=== PATIENT | male | born 1965 | race African-American/Black ===

== ENCOUNTER 2018-09-14 08:06 | Inpatient (IN) | payer OTHER ==
[2018-09-14] MEDS ORDERED: Acetaminophen 500 MG TAB ONE (08:29)
[2018-09-14] MEDS ORDERED: Piperacillin/Tazobactam 4.5 GM VIAL ONE (08:29)
[2018-09-14 08:43] LABS: #Basophils 0.1 thou/uL (0.0-0.2); #Lymphocytes 1.7 thou/uL (1.20-3.40); #Monocytes 1.2 thou/uL (0.11-0.59); #Neutrophils 7.4 thou/uL (1.40-6.50); %Basophils 0.7 % (0.0-1.0); %Eosinophils 0.3 % (0.0-10.0); %Lymphocytes 16.6 % (21.0-51.0); %Monocytes 11.9 % (0.0-10.0); %Neutrophils 70.5 % (42.0-75.0); Hemoglobin 11.5 g/dL (14.0-18.0); Mean Corpuscular HGB CONC 32.2 g/dL (32.0-36.0); Mean Corpuscular Hemoglobin 29.9 pg (27.0-31.0); Mean Corpuscular Volume 92.7 fL (78.0-98.0); Platelet Count 332 thou/uL (130-400); RBC Distribution Width 13.3 % (11.5-14.5); Red Blood Cell (RBC) Count 3.84 mill/uL (4.70-6.10); White Blood Cell (WBC) Count 10.4 thou/uL (4.8-10.8)
[2018-09-14 09:02] LABS: Bilirubin Small (Negative); Blood, Urine Negative (Negative); Clarity CLOUDY (Clear); Glucose, Urine (Dipstick) Negative (Negative); Leukocyte Small (Negative); Nitrite Negative (Negative); Protein, Urine (Dipstick) Negative (Neg-Trace); Specific Gravity, Urine 1.019 (1.002-1.036)
[2018-09-14 09:05] LABS: Bacteria/HPF 4+ HPF (None Seen); Hyaline Casts/LPF 0-3 HYALINE CAST LPF (0-3 Hyaline); RBC/HPF 0-3 HPF (0-3); Squamous Epithelial 0-3 HPF (0-3)
[2018-09-14 09:06] LABS: ALT (SGPT) 12 U/L (8-55); AST (SGOT) 15 U/L (5-34); Albumin 3.9 g/dL (3.5-5.0); Alkaline Phosphatase 93 U/L (40-150); Anion Gap 15 mmol/L (10-20); BUN (Urea Nitrogen) 19 mg/dL (8.4-25.7); Bilirubin, Total 0.7 mg/dL (0.2-1.2); Calc. Creatinine Clearance 0 mL/min (70-130); Calcium 9.4 mg/dL (7.8-10.44); Carbon Dioxide 27 mmol/L (22-29); Chloride 102 mmol/L (98-107); Estimated GFR-MDRD Greater than 90; Globulin 3.8 g/dL (2.4-3.5); Glucose 141 mg/dL (70-105); Potassium 4.4 mmol/L (3.5-5.1); Protein, Total 7.7 g/dL (6.0-8.3); Sodium 140 mmol/L (136-145)
[2018-09-14] MEDS ORDERED: Morphine 2 MG/ML SYRINGE ONE (09:37)
--- NOTE | 2018-09-14 09:50 | RAD ---
AP CHEST: History: Undifferentiated sepsis. Date: 09-14-18 Comparison: 01-19-16 FINDINGS: AP chest demonstrates EKG leads seen over the chest. The lungs are well aerated. No evidence of activ e intrathoracic disease seen. No evidence of effusions, pneumonia or pneumothorax seen. IMPRESSION: Unremarkable AP chest. POS: [facility]
--- NOTE | 2018-09-14 09:51 | RAD ---
LEFT HIP SERIES TWO TO THREE VIEWS: INDICATIONS: Fall with injury, pain. FINDINGS: There is a comminuted proximal left femoral fracture, which is centered at the intertrochanteric aspe ct of the proximal left femur. There is shaft width medial displacement of the major distal frac ture fragment. The femoral head remains seated within the acetabulum. IMPRESSION: Comminuted proximal left femoral fracture. POS: [facility]
--- NOTE | 2018-09-14 09:52 | RAD ---
TWO VIEWS RIGHT HIP: INDICATION: Fall with pain. FINDINGS: There is a mildly displaced proximal diaphyseal fracture of the right femur. Osseous structures are demineralized. There is scattered degenerative change. Radiopaque density overlies the right hemipe lvis. IMPRESSION: Mildly displaced proximal diaphyseal fracture of the right femur. POS: [facility]
--- NOTE | 2018-09-14 09:52 | RAD ---
FRONTAL VIEW PELVIS: Indication: Fall, pain, injury. FINDINGS: Partially imaged proximal diaphyseal fracture of the right femur is more adequately depicted on the r ight hip radiograph series. There is a comminuted proximal left femoral fracture which is centered at the intertrochanteric region underlying the greater trochanter as well as extending into the proxima l diaphysis. There is radiopaque density overlying the right hemipelvis. Incidental note of constipat ion. IMPRESSION: 1. Comminuted proximal left femur fracture. 2. Partially imaged proximal right femoral diaphyseal fracture. 3. Recommend orthopedic consultation. POS: [facility]
[2018-09-14] MEDS ORDERED: Vancomycin HCl 1.75 GM in Sodium Chloride 0.9% 500 ML IVPB SCH (10:00)
--- NOTE | 2018-09-14 13:38 | HP ---
PRIMARY CARE PROVIDER: Dr. Garcia. CHIEF COMPLAINT: Fall and leg pain. HISTORY OF PRESENT ILLNESS: This is a 52-year-old male, who presented to [facility] Emergency Department in transfer from [facility], where the patient is current resident since 2014. The patient apparently was being transferred with a Clau lift. On 09/13/2018, when he was suddenly dropped to the floor. The patient landed on his hips and buttocks and was monitored at the intermediate for approximately 24 hours. The patient complained of pain in his legs and hips, at which point, intermediate staff alerted EMS personnel for evaluation. EMS arrived and noted the patient's vital signs with tachycardia with heart rates in the 140s and blood pressure 84/54. The patient was given IV fluids and transported to the Emergency Department. The history is obtained after review of electronic medical record as well as discussions with the patient. The patient complained of pain to bilateral thighs and hip region, undergoing radiographic evaluation showing a bilateral femur fractures. The patient was also noted to meet sepsis criteria with tachycardia, hypotension, and a fever of 102.5 degrees Fahrenheit. The patient was given appropriate IV fluid resuscitation and initiated on empiric antibiotics with vancomycin and Zosyn. Initial urinalysis suspicious for infectious source in the context of neurogenic bladder. The patient states he has had multiple sclerosis since 2010 and has been nonambulatory for several years. PAST MEDICAL HISTORY: 1. Multiple sclerosis with progressive physical decline and nonambulatory status. 2. Paranoid schizophrenia. 3. Neurogenic bladder. 4. Chronic anticoagulation with Eliquis. 5. Question of DVT. 6. Peripheral neuropathy. PAST SURGICAL HISTORY: Reviewed and negative. CURRENT MEDICATIONS: 1. Neurontin 300 mg p.o. b.i.d. 2. Baclofen 10 mg p.o. t.i.d. 3. Multivitamin 1 tablet p.o. daily. 4. Oxybutynin 5 mg p.o. b.i.d. 5. Risperdal 7.5 mg p.o. at bedtime. 6. Eliquis 5 mg 1 tablet p.o. daily. 7. Mirtazapine 15 mg p.o. daily. 8. Depakote 125 mg p.o. b.i.d. 9. Vitamin C 250 mg 1 tablet p.o. daily. 10. Zantac 150 mg p.o. daily. 11. Lactulose 10 g p.o. b.i.d. 12. Linzess 290 mcg daily. 13. Tramadol 50 mg 1 to 2 tablets p.o. t.i.d. p.r.n. 14. Xopenex nebulized solution 1.25 mg/3 mL daily p.r.n. 15. Copaxone 20 mg subcutaneously daily. ALLERGIES: NO KNOWN DRUG ALLERGIES. FAMILY HISTORY: Positive for hypertension and diabetes mellitus. SOCIAL HISTORY: The patient resides at [facility]. Former tobacco use for approximately 15 years, quitting in 2010. No current alcohol or illicit drug use. Nonambulatory status. Originally from [place], [place]. REVIEW OF SYSTEMS: CONSTITUTIONAL: Negative for weight loss or gain, ability to conduct usual activities. SKIN: Negative for rash, itching. EYES: Negative for double vision, pain. ENT/MOUTH: Negative for nose bleeding, neck stiffness, pain, tenderness. CARDIOVASCULAR: Negative for palpitations, dyspnea on exertion, orthopnea. RESPIRATORY: Negative for shortness of breath, wheezing, cough, hemoptysis, fever or night sweats. GASTROINTESTINAL: Negative for poor appetite, abdominal pain, heartburn, nausea, vomiting, constipation, or diarrhea. GENITOURINARY: Negative for urgency, frequency, dysuria, nocturia. MUSCULOSKELETAL: Negative for pain, swelling. NEUROLOGIC/PSYCHIATRIC: Negative for anxiety, depression. ALLERGY/IMMUNOLOGIC: Negative for skin rash, bleeding tendency. Otherwise, negative except as stated per HPI. PHYSICAL EXAMINATION: VITAL SIGNS: On admission; blood pressure 98/68, pulse 132, respiratory rate 15, temperature 102.5 degrees Fahrenheit, and O2 saturation 96% on room air. GENERAL APPEARANCE: This is a 52-year-old male, alert and responsive. Mild dysarthria, in no acute distress. HEENT: Pupils are equal, round, and reactive to light and accommodation. Extraocular muscles are intact. No scleral icterus. No conjunctival injection. Nares patent. OP is clear. NECK: Supple. No adenopathy. No thyromegaly. CHEST: Lungs are clear to auscultation bilaterally. CARDIOVASCULAR: S1 and S2 without noted murmur, rub, or gallop. Tachycardia noted. ABDOMEN: Obese, soft, nontender, and nondistended. Bowel sounds are positive in all 4 quadrants. There is no hepatosplenomegaly. No palpable mass. EXTREMITIES: Warm and dry with fair turgor. Deformity noted at the proximal thighs and anterior femur region with mild tenderness to palpation and firmness consistent with bilateral thigh hematoma. Deformities noted of bilateral feet. Pulses palpable distally at the dorsalis pedis and posterior tibial arteries. NEUROLOGIC: Cranial nerves 2 through 12 are grossly intact. Mild dysarthria noted. Now observed ambulatory. No other gross focal deficits appreciated. PERTINENT LABS AND X-RAY FINDINGS: Sodium 140, potassium 4.4, chloride 102, CO2 of 27, BUN 19, creatinine 0.76, glucose 141, lactic acid level 1.6, and calcium 9.4. LFTs within normal limits. CBC showed a white blood cell count of 10.4, hemoglobin 11.5, hematocrit 36, and platelet count 332, with 71% neutrophils. Urinalysis shows specific gravity 1.019, positive ketone, positive leukocyte esterase with 11 to 20 wbc's per high-power field, and 4+ bacteria. Portable chest x-ray dated 09/14/2018, showed no acute cardiopulmonary process. Bilateral hip and femur x-rays showed a comminuted proximal left femoral fracture with a mildly displaced proximal diaphyseal fracture of the right femur. Telemetry monitoring showed sinus tachycardia with heart rates in the 120s. ASSESSMENT AND PLAN: 1. Sepsis. The patient with sepsis criteria including tachycardia, hypotension, and fever likely urinary tract source. We will continue vancomycin 1.5 g IV q.12 hours with addition of Zosyn 4.5 g IV q.6 hours pending urine and blood culture results. Continue IV fluids with normal saline 125 mL/h. Check lactic acid level. 2. Bilateral femur fractures. Status post fall with bilateral femur fractures. We will consult Orthopedic Surgery Service for evaluation and consideration for open reduction and internal fixation. Pain control with morphine sulfate 4 mg IV q.4 hours p.r.n. 3. Multiple sclerosis, chronic. We will confirm outpatient medication regimen and monitor clinically. 4. Normocytic anemia. Chronic appearing when reviewing electronic medical record. We will continue serial H and H monitoring given the patient's anticoagulation with Eliquis and current bilateral femur fractures. Repeat CBC in the a.m. 5. Chronic anticoagulation. We will hold Eliquis pending surgical evaluation. Serial H and H monitoring as stated previously. 6. Neurogenic bladder. Check urine culture. Continue IV antibiotics as stated previously. 7. Prophylaxis. Sequential compression devices while in bed. Pepcid 20 mg p.o. b.i.d. General fall risk precautions. 8. Code Status is full. Surrogate medical decision maker is Omar Hernandez. Job ID: [id number]
[2018-09-14] MEDS ORDERED: Morphine 4 MG/ML VIAL SLOW IVP PRN (14:09)
[2018-09-14] MEDS ORDERED: Ondansetron ODT 4 MG TAB PO PRN (14:09)
[2018-09-14 14:37] LABS: Hemoglobin 9.9 g/dL (14.0-18.0); Platelet Count 264 thou/uL (130-400)
--- NOTE | 2018-09-14 15:33 | CON ---
DATE OF CONSULTATION: 09/14/2018 REQUESTING PHYSICIAN: [facility]. CONSULTING PHYSICIAN: Isaias Reddy MD. REASON FOR CONSULTATION: Bilateral femur fractures. HISTORY OF PRESENT ILLNESS: This is a 52-year-old male, who presented to [place] [facility] Department by way of transfer from [facility], where the patient has lived since 2014. The patient was apparently being transferred with a Clau lift on 09/13/2018 when he was suddenly dropped to the floor. The patient landed on his hips and buttocks and was monitored at the shelter for approximately 24 hours. The patient has complained of pain in his legs and hips, at which point the nursing staff alerted EMS personnel for evaluation. EMS arrived and noted the patient's vital signs with tachycardia and heart rates in the 140s and blood pressure 84/54. The patient was given IV fluids and transferred to the emergency department. Majority of the history is obtained through medical record, documentation as well as primary H and P from the [facility] due to the patient's longstanding history of MS and limited history provided. The patient has now been admitted for urosepsis with bilateral femur fractures. We have been consulted for this reason. The patient states he has had multiple sclerosis since 2010. Has been nonambulatory for a number of years. Currently, at bedside, he reports some pain in his legs, currently 5/10 after receiving pain medication. He states that the most painful event was being transferred from the EMS stretcher to the ER [facility]. PAST MEDICAL HISTORY: Significant for multiple sclerosis with progressive physical decline and nonambulatory status, paranoid schizophrenia, neurogenic bladder, chronic anticoagulation with Eliquis, possible history of DVT, peripheral neuropathy. PAST SURGICAL HISTORY: Negative. ALLERGIES: NO KNOWN DRUG ALLERGIES. FAMILY HISTORY: Reviewed and noncontributory. SOCIAL HISTORY: The patient currently resides at [facility]. Former tobacco smoker for approximately 15 years, quit in 2010. No current alcohol or tobacco or drug use. Nonambulatory status. Originally from [place], [place]. REVIEW OF SYSTEMS: Reviewed and noncontributory, otherwise as stated above. PHYSICAL EXAMINATION: VITAL SIGNS: Show a blood pressure of 114/76, pulse of 122, respiratory rate of 16, temperature 99.9 oral, pain level 5/10, and O2 saturation 99% on room air. GENERAL: The patient is awake and alert. He is lying supine on a gurney in the ER. He is pleasant and cooperative with exam findings today. He answers most questions appropriately. He does provide his cellphone with a number of his cousin and power of licensed [employer] real estate appraiser. HEENT: Head is normocephalic, atraumatic. NECK: Supple. Trachea midline. RESPIRATORY: Breathing is nonlabored. HEART: Tachycardic. EXTREMITIES: The lower extremities are evaluated. Both feet are noted to be in the equinus position. He states he cannot move his feet. He reports sensation is intact distally. I am also able to palpate up his legs to his thigh and femur region. He expresses tenderness to palpation on the right thigh. He states that he can feel me touch on the left thigh, but this is not painful. He is able to move both upper extremities without any difficulty and both upper extremities are noted to have no injuries. IMAGING STUDIES: Imaging reviewed by myself shows evidence of a proximal third displaced femur fracture on the left. There is also a proximal third femur fracture on the right, which is displaced as well. The right fracture appears to be slightly more distal than the left. The left is just distal to the subtrochanteric region. ASSESSMENT: Bilateral femur fractures in a patient with multiple sclerosis, who is nonambulatory. PLAN: At this time, I have had a long discussion with the patient regarding treatment for his bilateral femur fractures. This could be treated operatively or nonoperatively given that the patient is nonambulatory. The patient states he does get around. He does not use a wheelchair. The decision is mainly going to be made based upon pain control and how much the patient moves around if he uses some sort of scooter or assistive device. We would like to make sure that his fractures are stabilized for comfort reasons. I had a short discussion with the patient's power of licensed [employer] real estate appraiser on the phone. He states he is on his way to the hospital and we will await his arrival to make any further decisions. For now, the patient has been on Eliquis and has eaten today. He will be n.p.o. after midnight in the event that we decided to do surgery tomorrow based upon family and power of licensed [employer] real estate appraiser's decision. The patient is currently admitted to the [facility]. Job ID: [id number]
[2018-09-14 18:26] LABS: Lactic Acid 2.5 mmol/L (0.5-2.2)
[2018-09-14] MEDS: Piperacillin/Tazobactam 4.5 GM in Sodium Chloride 0.9% 100 ML IVPB SCH ×2 (18:39→23:34)
[2018-09-14] MEDS: Acetaminophen 500 MG TAB PO PRN (18:41)
[2018-09-14] MEDS: Sodium Chloride 0.9% 1,000 ML IV SCH (18:41)
[2018-09-14] MEDS: Vancomycin HCl 1.5 GM in Sodium Chloride 0.9% 250 ML 300 ML IVPB SCH (20:51)
[2018-09-14] MEDS: Famotidine 20 MG TAB PO SCH (20:51)
[2018-09-15] MEDS: Sodium Chloride 0.9% 1,000 ML IV SCH ×4 (00:19→21:15)
[2018-09-15] MEDS: Piperacillin/Tazobactam 4.5 GM in Sodium Chloride 0.9% 100 ML IVPB SCH ×3 (05:10→17:59)
[2018-09-15 07:48] LABS: Anion Gap 10 mmol/L (10-20); BUN (Urea Nitrogen) 11 mg/dL (8.4-25.7); Calc. Creatinine Clearance 0 mL/min (70-130); Calcium 7.8 mg/dL (7.8-10.44); Carbon Dioxide 24 mmol/L (22-29); Chloride 109 mmol/L (98-107); Estimated GFR-MDRD Greater than 90; Glucose 109 mg/dL (70-105); Potassium 3.4 mmol/L (3.5-5.1); Sodium 140 mmol/L (136-145)
[2018-09-15] MEDS ORDERED: CEFAZOLIN 2 GM in Premix Bag 1 BAG IVPB SCH (08:00)
[2018-09-15] MEDS ORDERED: ISOVUE-370 76%-LOCM 1 ML ONE (08:20)
[2018-09-15 08:44] LABS: Eosinophils 2 % (0-10); Hemoglobin 7.5 g/dL (14.0-18.0); Lymphocytes 20 % (21-51); MDiff Complete? YES; Mean Corpuscular HGB CONC 31.5 g/dL (32.0-36.0); Mean Corpuscular Hemoglobin 29.9 pg (27.0-31.0); Mean Platelet Volume 6.7 fL (7.4-10.4); Monocytes 10 % (0-10); Neutrophil 67 % (42-75); Platelet Count 198 thou/uL (130-400); RBC Distribution Width 13.4 % (11.5-14.5); RBC Morphology Normal; Red Blood Cell (RBC) Count 2.49 mill/uL (4.70-6.10); White Blood Cell (WBC) Count 8.9 thou/uL (4.8-10.8)
[2018-09-15] MEDS: Vancomycin HCl 1.5 GM in Sodium Chloride 0.9% 250 ML 300 ML IVPB SCH ×2 (08:50→21:15)
[2018-09-15] MEDS: Acetaminophen 500 MG TAB PO PRN ×2 (08:51→17:59)
[2018-09-15] MEDS: Famotidine 20 MG TAB PO SCH ×2 (08:51→21:15)
[2018-09-15] MEDS ORDERED: Morphine 2 MG/ML SYRINGE SLOW IVP PRN (08:59)
[2018-09-15] MEDS ORDERED: Morphine 4 MG/ML VIAL SLOW IVP PRN (09:28)
[2018-09-15] MEDS ORDERED: Ketorolac Tromethamine 30 MG/ML VIAL IVP PRN (12:32)
[2018-09-15 13:12] VITALS: BMI 23.3
--- NOTE | 2018-09-15 16:58 | PDOC.PN ---
- Subjective Encounter Start Date: 09/15/18 Encounter Start Time: 08:20 Pt seen for followup re: sepsis. Denies chest pain. - Objective Resuscitation Status - Order Detail: 09/14/18 11:29 Resuscitation Status Routine Resuscitation Status: FULL: Full Resuscitation MAR Reviewed: Yes Vital Signs & Weight: Vital Signs (12 hours) Temp Pulse Resp BP Pulse Ox 09/15/18 15:44 100.0 F H 125 H 20 88/57 L 97 09/15/18 13:18 100.3 F H 126 H 18 104/69 96 09/15/18 12:00 100.7 F H 132 H 18 95/61 96 09/15/18 08:07 100.8 F H 122 H 16 96/69 96 Weight Weight 158 lb I&O: 09/14/18 09/15/18 09/16/18 06:59 06:59 06:59 Intake Total 2510 Balance 2510 Result Diagrams: 09/15/18 07:15 09/15/18 07:15 Phys Exam - Physical Examination Constitutional: NAD HEENT: moist MMs, sclera anicteric, oral pharynx no lesions, 2+ tonsils Neck: no nodes, no JVD, supple, full ROM Respiratory: clear to auscultation bilateral S1, s2, tachy, reg Gastrointestinal: soft, non-tender, no distention, positive bowel sounds paraplegia Psychiatric: normal affect, A&O x 3 Dx/Plan (1) Sepsis Code(s): A41.9 - SEPSIS, UNSPECIFIED ORGANISM Status: Acute Comment: source of infection unclear, follow blood cultures. Check Ct chest/abdo/pelvis to r/o occult infection. (2) Hypotension Status: Acute Comment: secondary to sepsis vs. other etiologies (3) Symptomatic anemia Code(s): D64.9 - ANEMIA, UNSPECIFIED Status: Acute Comment: ? secondary to acute blood loss vs other etiologies (? sepsis). Repeat HH, check reticulocyte count. (4) Bilateral femoral fractures Code(s): S72.91XA - UNSP FRACTURE OF RIGHT FEMUR, INIT FOR CLOS FX; S72.92XA - UNSP FRACTURE OF LEFT FEMUR, INIT ENCNTR FOR CLOSED FRACTURE Status: Acute Comment: ortho consulted (5) GERD (gastroesophageal reflux disease) Code(s): K21.9 - GASTRO-ESOPHAGEAL REFLUX DISEASE WITHOUT ESOPHAGITIS Status: Chronic Qualifiers: Esophagitis presence: esophagitis presence not specified Qualified Code(s) : K21.9 - Gastro-esophageal reflux disease without esophagitis (6) Multiple sclerosis Code(s): G35 - MULTIPLE SCLEROSIS Status: Chronic - Plan continue antibiotics * . Review of Systems - Review of Systems Constitutional: negative: fever, chills, sweats, weakness, malaise Respiratory: negative: Cough, Shortness of Breath, SOB with Excertion, Pleuritic Pain, Wheezing Cardiovascular: negative: chest pain, palpitations, orthopnea, paroxysmal nocturnal dyspnea, edema, light headedness Gastrointestinal: negative: Nausea, Vomiting, Abdominal Pain, Diarrhea, Constipation, Melena, Hematochezia Genitourinary: negative: Dysuria, Frequency, Incontinence, Hematuria, Retention Skin: negative: Rash, Lesions, Ray, Bruising - Medications/Allergies Allergies/Adverse Reactions: Allergies Allergy/AdvReac Type Severity Reaction Status Date / Time No Known Allergies Allergy Verified 11/20/15 00:22 Medications: Current Medications Acetaminophen (Tylenol) 1,000 mg PO Q6H PRN PRN Reason: Mild Pain (1-3) Last Admin: 09/15/18 08:51 Dose: 1,000 mg Famotidine (Pepcid) 20 mg PO BID [facility] Last Admin: 09/15/18 08:51 Dose: 20 mg Sodium Chloride (Normal Saline 0.9%) 1,000 mls @ 125 mls/hr IV .Q8H [facility] Last Admin: 09/15/18 13:15 Dose: 1,000 mls Piperacillin Sod/Tazobactam (Sod 4.5 gm/ Sodium Chloride) 100 mls @ 200 mls/hr IVPB Q6HR [facility] Last Admin: 09/15/18 12:00 Dose: 100 mls Vancomycin HCl 1.5 gm/ Sodium (Chloride) 300 mls @ 200 mls/hr IVPB Q12HR [facility] Last Admin: 09/15/18 08:50 Dose: 300 mls Cefazolin Sodium/Dextrose 2 gm (/ Device) 50 mls @ 100 mls/hr IVPB ONCALL-OR [facility] Ketorolac Tromethamine (Toradol) 15 mg IVP Q8H PRN PRN Reason: Pain Stop: 09/20/18 12:33 Last Admin: 09/15/18 13:09 Dose: 15 mg Morphine Sulfate (Morphine) 2 mg SLOW IVP Q4H PRN PRN Reason: Moderate Pain (4-6) Morphine Sulfate (Morphine) 4 mg SLOW IVP Q4H PRN PRN Reason: Severe Pain (7-10) Ondansetron HCl (Zofran Odt) 4 mg PO Q6H PRN PRN Reason: Nausea/Vomiting Ondansetron HCl (Zofran) 4 mg IVP Q6H PRN PRN Reason: Nausea/Vomiting Sodium Chloride (Flush - Normal Saline) 10 ml IVF Q12HR [facility] Last Admin: 09/15/18 12:07 Dose: 10 ml Sodium Chloride (Flush - Normal Saline) 10 ml IVF PRN PRN PRN Reason: Saline Flush Tramadol HCl (Ultram) 100 mg PO Q4H PRN PRN Reason: Moderate Pain (4-6)
[2018-09-15] MEDS ORDERED: Potassium Chloride 20 MEQ TAB PO SCH (17:30)
[2018-09-15 17:43] LABS: Reticulocyte Count 3.3 % (0.5-1.5)
--- NOTE | 2018-09-15 19:47 | CT ---
CT CHEST WITH CONTRAST CT ABDOMEN WITH CONTRAST CT PELVIS WITH CONTRAST 09/15/18 HISTORY: Abscess. Abdominal pain. COMPARISON: None. FINDINGS: There is some scarring and atelectatic changes in both lung bases. No pneumothorax. No effusions. Thyroid is unremarkable. No mediastinal adenopathy. There is marked distention of the stomach. There is large volume stool throughout the colon. There is abnormal thickening of the rectal wall with large volume stool within the rectum. Sigmoid colon is dilated. The appendix is visualized and appears normal. No retroperitoneal adenopathy. The spleen and liver a re unremarkable. No hydronephrosis. No retroperitoneal adenopathy. There is a comminuted left intertrochanteric femoral fracture with extension to the left femoral neck . Proximal right femoral fracture is not appreciated. Large left hip joint effusion. Marked distention of the urinary bladder. The aortic contour is nonaneurysmal. IMPRESSION: 1. Marked thickening of the distal sigmoid colon and the rectum likely sequela of stercoral coli tis. Disimpact is recommended as there is marked gaseous distention of the sigmoid colon as well as l arge volume stool within the descending colon. 2. Intertrochanteric/femoral neck fracture on the left. 3. Abnormal subcutaneous fat and skin thickening over both thighs may reflect a contusion. POS: [facility]
[2018-09-16] MEDS: Piperacillin/Tazobactam 4.5 GM in Sodium Chloride 0.9% 100 ML IVPB SCH ×4 (00:03→18:20)
[2018-09-16] MEDS: traMADol HCl 50 MG TAB PO PRN ×2 (03:06→12:23)
[2018-09-16] MEDS: Sodium Chloride 0.9% 1,000 ML IV SCH ×2 (06:47→19:45)
[2018-09-16 07:41] LABS: #Eosinphils 0.2 thou/uL (0.0-0.7); #Lymphocytes 1.8 thou/uL (1.20-3.40); #Monocytes 1.2 thou/uL (0.11-0.59); #Neutrophils 7.1 thou/uL (1.40-6.50); %Basophils 0.4 % (0.0-1.0); %Eosinophils 2.2 % (0.0-10.0); %Lymphocytes 16.9 % (21.0-51.0); %Monocytes 11.2 % (0.0-10.0); %Neutrophils 69.3 % (42.0-75.0); Hemoglobin 7.1 g/dL (14.0-18.0); Mean Corpuscular Hemoglobin 30.3 pg (27.0-31.0); Mean Corpuscular Volume 91.7 fL (78.0-98.0); Platelet Count 163 thou/uL (130-400); RBC Distribution Width 13.2 % (11.5-14.5); Red Blood Cell (RBC) Count 2.35 mill/uL (4.70-6.10); White Blood Cell (WBC) Count 10.3 thou/uL (4.8-10.8)
[2018-09-16] MEDS ORDERED: Polyethylene Glycol 3350 17 GM Packet PO PRN (09:00)
[2018-09-16] MEDS ORDERED: Docusate 100 MG CAP PO PRN (09:00)
[2018-09-16] MEDS: Famotidine 20 MG TAB PO SCH ×2 (09:09→21:06)
[2018-09-16] MEDS: Vancomycin HCl 1.5 GM in Sodium Chloride 0.9% 250 ML 300 ML IVPB SCH ×2 (09:09→21:06)
[2018-09-16] MEDS ORDERED: Potassium Chloride 20 MEQ TAB PO SCH (13:45)
--- NOTE | 2018-09-16 14:20 | PDOC.PN ---
- Subjective Encounter Start Date: 09/16/18 Encounter Start Time: 14:19 Subjective: Still having bilateral hip pain though better. -: Fever has subsided. For ORIF of bilateral femoral fractures tomorrow. - Objective Resuscitation Status - Order Detail: 09/14/18 11:29 Resuscitation Status Routine Resuscitation Status: FULL: Full Resuscitation Vital Signs & Weight: Vital Signs (12 hours) Temp Pulse Resp BP Pulse Ox 09/16/18 11:10 99.7 F H 97 18 113/77 96 09/16/18 08:00 98.6 F 94 20 113/77 97 09/16/18 04:25 99.0 F 109 H 18 105/70 98 Weight Admit Weight 158 lb Weight 158 lb I&O: 09/15/18 09/16/18 09/17/18 06:59 06:59 06:59 Intake Total 2510 5440 320 Balance 2510 5440 320 Result Diagrams: 09/16/18 07:24 09/15/18 07:15 Phys Exam - Physical Examination chronically ill looking. fatigued HEENT: PERRLA, moist MMs Neck: supple Respiratory: no rales, no rhonchi fair air entry bilaterally Cardiovascular: RRR, no significant murmur Gastrointestinal: non-tender, no distention, positive bowel sounds seem enlarged, mild bilateral leg edema cranial nerves are grossly normal. Power 4/5 upper limbs and 2/5 lower limb Psychiatric: A&O x 3 Dx/Plan (1) Sepsis Code(s): A41.9 - SEPSIS, UNSPECIFIED ORGANISM Status: Acute Comment: source of infection unclear, follow blood cultures. Check Ct chest/abdo/pelvis to r/o occult infection. (2) Bilateral femoral fractures Code(s): S72.91XA - UNSP FRACTURE OF RIGHT FEMUR, INIT FOR CLOS FX; S72.92XA - UNSP FRACTURE OF LEFT FEMUR, INIT ENCNTR FOR CLOSED FRACTURE Status: Acute Comment: ortho consulted (3) Bacteremia Code(s): R78.81 - BACTEREMIA Status: Acute (4) Hypotension Status: Acute Comment: secondary to sepsis vs. other etiologies (5) Constipation Code(s): K59.00 - CONSTIPATION, UNSPECIFIED Status: Acute (6) Hypokalemia Code(s): E87.6 - HYPOKALEMIA Status: Acute (7) Acute blood loss anemia Code(s): D62 - ACUTE POSTHEMORRHAGIC ANEMIA Status: Acute (8) Symptomatic anemia Code(s): D64.9 - ANEMIA, UNSPECIFIED Status: Acute Comment: ? secondary to acute blood loss vs other etiologies (? sepsis). Repeat HH, check reticulocyte count. (9) UTI (urinary tract infection) Status: Acute (10) Multiple sclerosis Code(s): G35 - MULTIPLE SCLEROSIS Status: Chronic (11) Neurogenic bladder Code(s): N31.9 - NEUROMUSCULAR DYSFUNCTION OF BLADDER, UNSPECIFIED Status: Chronic (12) Paranoid schizophrenia Code(s): F20.0 - PARANOID SCHIZOPHRENIA Status: Chronic - Plan Continue broad spectrum antibiotics while awaiting microbe ID and susceptib -: Increase stool softener/laxatives. -: Replete serum potassium and get magnesium level. -: Follow H/H and transfuse as needed -: ORIF planned by surgery * .
[2018-09-16] MEDS: Lactated Ringer's 1,000 ML IV SCH (17:08)
[2018-09-16] MEDS: Acetaminophen 500 MG TAB PO PRN (17:08)
[2018-09-16] MEDS: Senokot S 8.6-50 MG TAB PO SCH (21:05)
[2018-09-16] MEDS: Polyethylene Glycol 3350 17 GM Packet PO SCH (21:16)
[2018-09-17] MEDS: Piperacillin/Tazobactam 4.5 GM in Sodium Chloride 0.9% 100 ML IVPB SCH ×4 (00:19→17:26)
[2018-09-17] MEDS: traMADol HCl 50 MG TAB PO PRN (04:15)
[2018-09-17] MEDS: Lactated Ringer's 1,000 ML IV SCH ×2 (04:20→17:27)
[2018-09-17 05:28] LABS: #Basophils 0.1 thou/uL (0.0-0.2); #Eosinphils 0.4 thou/uL (0.0-0.7); #Monocytes 1.4 thou/uL (0.11-0.59); %Basophils 0.5 % (0.0-1.0); %Eosinophils 3.2 % (0.0-10.0); %Lymphocytes 15.4 % (21.0-51.0); %Monocytes 10.7 % (0.0-10.0); %Neutrophils 70.3 % (42.0-75.0); Hemoglobin 7.4 g/dL (14.0-18.0); Mean Corpuscular HGB CONC 32.5 g/dL (32.0-36.0); Mean Corpuscular Hemoglobin 30.4 pg (27.0-31.0); Mean Corpuscular Volume 93.4 fL (78.0-98.0); Mean Platelet Volume 7.3 fL (7.4-10.4); Platelet Count 197 thou/uL (130-400); RBC Distribution Width 13.4 % (11.5-14.5); Red Blood Cell (RBC) Count 2.45 mill/uL (4.70-6.10); White Blood Cell (WBC) Count 12.8 thou/uL (4.8-10.8)
[2018-09-17 05:53] LABS: ALT (SGPT) 11 U/L (8-55); AST (SGOT) 17 U/L (5-34); Albumin 2.8 g/dL (3.5-5.0); Alkaline Phosphatase 57 U/L (40-150); Anion Gap 11 mmol/L (10-20); BUN (Urea Nitrogen) 6 mg/dL (8.4-25.7); Bilirubin, Total 1.4 mg/dL (0.2-1.2); Calc. Creatinine Clearance 172 mL/min (70-130); Calcium 7.9 mg/dL (7.8-10.44); Carbon Dioxide 23 mmol/L (22-29); Chloride 109 mmol/L (98-107); Estimated GFR-MDRD Greater than 90; Globulin 2.8 g/dL (2.4-3.5); Glucose 85 mg/dL (70-105); Magnesium 1.5 mg/dL (1.6-2.6); Potassium 3.3 mmol/L (3.5-5.1); Protein, Total 5.6 g/dL (6.0-8.3); Sodium 140 mmol/L (136-145)
[2018-09-17] MEDS: Senokot S 8.6-50 MG TAB PO SCH ×2 (09:36→21:04)
[2018-09-17] MEDS: Famotidine 20 MG TAB PO SCH ×2 (09:36→21:03)
[2018-09-17] MEDS: Polyethylene Glycol 3350 17 GM Packet PO SCH ×2 (09:36→21:04)
[2018-09-17] MEDS: Vancomycin HCl 1.5 GM in Sodium Chloride 0.9% 250 ML 300 ML IVPB SCH ×2 (09:38→21:04)
[2018-09-17] MEDS ORDERED: Norepinephrine 8 MG/0.9% NS 250 ML ONE (12:18)
[2018-09-17] MEDS ORDERED: Ketamine 50 MG/ML (10ML VIAL) ONE (12:26)
[2018-09-17] MEDS ORDERED: Midazolam HCl 2 mg/2 ml Vial ONE (12:42)
[2018-09-17] MEDS ORDERED: Rocuronium Bromide 10 MG/ML (10ML VIAL) ONE (13:52)
[2018-09-17] MEDS ORDERED: Lidocaine 1% PF 5 ML VIAL ONE (13:52)
--- NOTE | 2018-09-17 14:16 | PDOC.PN ---
- Subjective Encounter Start Date: 09/17/18 Encounter Start Time: 10:14 Subjective: No new problem -: For ORIF today - Objective Resuscitation Status - Order Detail: 09/14/18 11:29 Resuscitation Status Routine Resuscitation Status: FULL: Full Resuscitation Vital Signs & Weight: Vital Signs (12 hours) Temp Pulse Pulse Resp BP BP Pulse Ox 09/17/18 11:04 98.7 F 68 14 120/76 100 09/17/18 09:46 97.8 F 92 16 120/76 100 09/17/18 09:32 98.9 F 94 14 113/75 100 09/17/18 08:00 100 09/17/18 07:56 99.3 F 85 14 114/75 100 09/17/18 07:33 98.6 F 92 20 121/79 96 09/17/18 04:28 98.6 F 108 H 20 109/76 98 Weight Admit Weight 158 lb Weight 158 lb I&O: 09/16/18 09/17/18 09/18/18 06:59 06:59 06:59 Intake Total 5440 3700 0 Balance 5440 3700 0 Result Diagrams: 09/17/18 04:49 09/17/18 04:49 Phys Exam - Physical Examination Chronically ill looking HEENT: PERRLA, moist MMs Neck: supple Respiratory: no rales, no rhonchi Fair air entry bilaterally Cardiovascular: RRR Gastrointestinal: soft, no distention, positive bowel sounds mild bilateral leg edema Moves upper limbs. weakness of lower limbs noted Psychiatric: A&O x 3 Dx/Plan (1) Sepsis Code(s): A41.9 - SEPSIS, UNSPECIFIED ORGANISM Status: Acute Comment: Most likely 2/2 UTI. ? translocation of gut bacterial due to constipation. (2) Bilateral femoral fractures Code(s): S72.91XA - UNSP FRACTURE OF RIGHT FEMUR, INIT FOR CLOS FX; S72.92XA - UNSP FRACTURE OF LEFT FEMUR, INIT ENCNTR FOR CLOSED FRACTURE Status: Acute Comment: ortho consulted (3) Bacteremia Code(s): R78.81 - BACTEREMIA Status: Acute Comment: 1/2 blood cultures growing coag neg staph. most likely contaminant. (4) Hypotension Status: Acute Comment: secondary to sepsis vs. other etiologies. Resolved (5) Constipation Code(s): K59.00 - CONSTIPATION, UNSPECIFIED Status: Acute (6) Hypokalemia Code(s): E87.6 - HYPOKALEMIA Status: Acute Comment: Persistent. Most likely related to hypomagnesemia (7) Acute blood loss anemia Code(s): D62 - ACUTE POSTHEMORRHAGIC ANEMIA Status: Acute (8) Symptomatic anemia Code(s): D64.9 - ANEMIA, UNSPECIFIED Status: Acute Comment: ? secondary to acute blood loss vs other etiologies (? sepsis). Repeat HH, check reticulocyte count. (9) UTI (urinary tract infection) Status: Acute Comment: Culture grew E coli (10) Multiple sclerosis Code(s): G35 - MULTIPLE SCLEROSIS Status: Chronic (11) Neurogenic bladder Code(s): N31.9 - NEUROMUSCULAR DYSFUNCTION OF BLADDER, UNSPECIFIED Status: Chronic (12) Paranoid schizophrenia Code(s): F20.0 - PARANOID SCHIZOPHRENIA Status: Chronic (13) Hypomagnesemia Code(s): E83.42 - HYPOMAGNESEMIA Status: Acute - Plan Replete serum potassium and magnesium. -: Recheck electrolytes and replete as needed. -: Continue current antibiotics. -: For ORIF by ortho -: Monitor H/H and transfuse as needed. * .
[2018-09-17] MEDS ORDERED: Magnesium Sulfate 4 GM in Sodium Chloride 0.9% 250 ML 250 ML IVPB SCH ×2 (14:30→18:00)
[2018-09-17] MEDS ORDERED: Fentanyl 100 MCG/2 ML VIAL ONE (15:08)
--- NOTE | 2018-09-17 15:59 | OP ---
DATE OF PROCEDURE: 09/17/2018 PROCEDURES PERFORMED: 1. Right femur intramedullary nail. 2. Left femur intramedullary nail. PREOPERATIVE DIAGNOSES: Right femur midshaft fracture and left femur subtrochanteric fracture. POSTOPERATIVE DIAGNOSES: Right femur midshaft fracture and left femur subtrochanteric fracture. COMPLICATIONS: None. ESTIMATED BLOOD LOSS: 250 mL. ANESTHESIA: General. IMPLANTS: Synthes 420 x 14 mm femoral nail with Crosslock screws x2. INDICATIONS: Quinton is a 52-year-old male, who has multiple sclerosis. He is bedbound but does transfer. He fell from the bed on transfer. He fractured his bilateral femurs. He was indicated for bilateral femur intramedullary nail to restore anatomic alignment, promote healing, and allow the ability to transfer out of bed. Risks have been reviewed in detail. He has elected to proceed with the operation. DESCRIPTION OF PROCEDURE: Mr. Alcantara was identified in the preoperative holding area. His correct extremity was marked. He was carried to the operating room. He was positioned supine. He was placed on the fracture table. The right lower extremity was placed in traction and we manipulated the fracture back into its anatomic position. Once we had an anatomic alignment, we proceeded to prep the femur. We then made a small incision proximal on the thigh. We dissected down bluntly to the tip of the trochanter. We inserted a guidewire. At this point, we over-reamed the guidewire. We used intraoperative x-ray guiding this procedure. We then placed a ball-tip guidewire. Next, we over-reamed the ball-tipped guidewire. We then impacted our 14 mm femoral nail. A helical blade was placed in the proximal aspect of the femur in the center position of the femoral head. We then placed a distal Crosslock screw using perfect crow technique. At this point, we irrigated the wounds and closed the wounds on the right leg. Next, we prepped and draped the left lower extremity. Again, we manipulated the fracture with traction. We then proceeded to insert our guidewire at the tip of the trochanter. We over-reamed the guidewire and placed our ball-tipped guidewire. Once more, we reamed on the ball-tipped guidewire, we then impacted our nail. We placed our helical blade and our distal Crosslock screw. This completed the procedure. At this point, we took final x-ray images. We then closed the wounds. The patient was taken to the recovery room in good condition without complication at this point. Job ID: [id number]
--- NOTE | 2018-09-17 16:09 | RAD ---
TWO VIEWS RIGHT FEMUR: COMPARISON: Right hip radiograph 09/14/2018. HISTORY: Right femur fracture. FINDINGS/IMPRESSION: Multiple limited intraoperative fluoroscopic views of the right femur were submitted for interpretati on. The patient is status post antegrade dai fixing spanning the proximal femoral diaphysis fracture . POS: [facility]
[2018-09-17 16:10] LABS: Hemoglobin 10.3 g/dL (14.0-18.0)
[2018-09-17] MEDS: Potassium Chloride 20 MEQ TAB PO SCH ×2 (17:26→17:56)
[2018-09-17] MEDS ORDERED: Potassium Chloride 20 MEQ TAB PO SCH (19:30)
[2018-09-18] MEDS: Piperacillin/Tazobactam 4.5 GM in Sodium Chloride 0.9% 100 ML IVPB SCH ×2 (00:16→05:22)
[2018-09-18] MEDS: Ondansetron PF 4 MG/2 ML Vial IVP PRN ×3 (04:03→21:23)
[2018-09-18] MEDS: Acetaminophen 500 MG TAB PO PRN ×2 (04:56→21:23)
[2018-09-18 04:59] LABS: #Lymphocytes 1.4 thou/uL (1.20-3.40); #Monocytes 1.1 thou/uL (0.11-0.59); #Neutrophils 8.3 thou/uL (1.40-6.50); %Basophils 0.4 % (0.0-1.0); %Eosinophils 0.2 % (0.0-10.0); %Lymphocytes 13.1 % (21.0-51.0); %Monocytes 10.1 % (0.0-10.0); %Neutrophils 76.1 % (42.0-75.0); Hemoglobin 8.8 g/dL (14.0-18.0); Mean Corpuscular HGB CONC 33.8 g/dL (32.0-36.0); Mean Corpuscular Hemoglobin 30.6 pg (27.0-31.0); Mean Corpuscular Volume 90.6 fL (78.0-98.0); Mean Platelet Volume 7.2 fL (7.4-10.4); Platelet Count 186 thou/uL (130-400); RBC Distribution Width 12.9 % (11.5-14.5); Red Blood Cell (RBC) Count 2.88 mill/uL (4.70-6.10); White Blood Cell (WBC) Count 10.9 thou/uL (4.8-10.8)
[2018-09-18] MEDS: Metoprolol Tartrate 5 MG/5 ML VIAL IVP PRN ×2 (05:06→21:32)
[2018-09-18 05:25] LABS: ALT (SGPT) 13 U/L (8-55); AST (SGOT) 20 U/L (5-34); Albumin 2.6 g/dL (3.5-5.0); Alkaline Phosphatase 52 U/L (40-150); Anion Gap 19 mmol/L (10-20); BUN (Urea Nitrogen) 6 mg/dL (8.4-25.7); Calc. Creatinine Clearance 133 mL/min (70-130); Calcium 7.5 mg/dL (7.8-10.44); Carbon Dioxide 14 mmol/L (22-29); Chloride 112 mmol/L (98-107); Estimated GFR-MDRD Greater than 90; Globulin 2.7 g/dL (2.4-3.5); Glucose 109 mg/dL (70-105); Magnesium 2.1 mg/dL (1.6-2.6); Potassium 4.1 mmol/L (3.5-5.1); Protein, Total 5.3 g/dL (6.0-8.3); Sodium 141 mmol/L (136-145)
[2018-09-18] MEDS: Lactated Ringer's 1,000 ML IV SCH ×2 (07:37→21:23)
[2018-09-18] MEDS: Famotidine 20 MG TAB PO SCH ×2 (08:58→21:02)
[2018-09-18] MEDS: Senokot S 8.6-50 MG TAB PO SCH ×2 (08:58→21:02)
[2018-09-18] MEDS: Polyethylene Glycol 3350 17 GM Packet PO SCH ×2 (08:59→21:02)
--- NOTE | 2018-09-18 09:23 | RAD ---
PORTABLE CHEST: DATE: 09/18/2018. PROVIDED CLINICAL HISTORY: Tachycardia. FINDINGS: Comparison is made with the study dated 09/14/2018. Cardiac and mediastinal silhouette is unchanged i n appearance. Interval development of patchy airspace disease in the right mid lung zone. Lungs yaya ear otherwise clear. There is no evidence for pleural fluid or pneumothorax. IMPRESSION: Development of a patchy right mid lung zone airspace disease. Correlate with concerns for pneumonia. Followup recommended. POS: [facility]
[2018-09-18] MEDS: Vancomycin HCl 1.5 GM in Sodium Chloride 0.9% 250 ML 300 ML IVPB SCH (09:59)
[2018-09-18] MEDS ORDERED: Albumin 25% 25 GM/100 ML BOT IVPB SCH (12:20)
--- NOTE | 2018-09-18 12:26 | PDOC.PN ---
- Subjective Encounter Start Date: 09/18/18 Encounter Start Time: 12:22 Subjective: Had bilateral femoral intramedullary nailiny yesterday 09/17/2018. -: post op, he developed tachycardia. was transfused 3 units of PRBC jenny op. -: No hypoxia or fever. - Objective Resuscitation Status - Order Detail: 09/14/18 11:29 Resuscitation Status Routine Resuscitation Status: FULL: Full Resuscitation Vital Signs & Weight: Vital Signs (12 hours) Temp Pulse Resp BP Pulse Ox 09/18/18 12:05 98.4 F 112 H 20 103/70 96 09/18/18 08:58 94 L 09/18/18 07:39 99.2 F 116 H 20 96/69 94 L 09/18/18 05:16 110 H 102/67 09/18/18 05:00 145 H 113/54 L 09/18/18 04:11 100.2 F H 138 H 20 115/80 95 09/18/18 00:32 99.4 F 128 H 18 120/83 96 Weight Admit Weight 158 lb Weight 158 lb I&O: 09/17/18 09/18/18 09/19/18 06:59 06:59 06:59 Intake Total 3700 1455 Balance 3700 1455 Result Diagrams: 09/18/18 04:28 09/18/18 04:28 Phys Exam - Physical Examination Constitutional: NAD awake and conversation HEENT: PERRLA, moist MMs Neck: supple Respiratory: no wheezing fair air entry bilaterally. decreased at the bases. No respiratory distress Cardiovascular: no significant murmur regular but tachycardic. Gastrointestinal: soft, no distention, positive bowel sounds mild to moderate bilateral lower extremity edema. No erythema Moves all limbs but weakly. flexion deformity of the left wrist noted. Psychiatric: A&O x 3 Dx/Plan (1) Sepsis Code(s): A41.9 - SEPSIS, UNSPECIFIED ORGANISM Status: Acute Comment: Most likely 2/2 UTI. ? translocation of gut bacterial due to constipation. (2) Bilateral femoral fractures Code(s): S72.91XA - UNSP FRACTURE OF RIGHT FEMUR, INIT FOR CLOS FX; S72.92XA - UNSP FRACTURE OF LEFT FEMUR, INIT ENCNTR FOR CLOSED FRACTURE Status: Acute Comment: ortho consulted (3) Bacteremia Code(s): R78.81 - BACTEREMIA Status: Acute Comment: 1/2 blood cultures growing coag neg staph. Most likely contaminant. (4) Hypotension Status: Acute Comment: secondary to sepsis vs. other etiologies. Resolved (5) Constipation Code(s): K59.00 - CONSTIPATION, UNSPECIFIED Status: Acute (6) Hypokalemia Code(s): E87.6 - HYPOKALEMIA Status: Acute Comment: Persistent. Most likely related to hypomagnesemia (7) Acute blood loss anemia Code(s): D62 - ACUTE POSTHEMORRHAGIC ANEMIA Status: Acute Comment: Recieved 1 unit of PRBC on 09/15 and 3 units on 09/17 (8) Symptomatic anemia Code(s): D64.9 - ANEMIA, UNSPECIFIED Status: Acute Comment: ? secondary to acute blood loss vs other etiologies (? sepsis). Repeat HH, check reticulocyte count. (9) UTI (urinary tract infection) Status: Acute Comment: Culture grew E coli (10) Multiple sclerosis Code(s): G35 - MULTIPLE SCLEROSIS Status: Chronic (11) Neurogenic bladder Code(s): N31.9 - NEUROMUSCULAR DYSFUNCTION OF BLADDER, UNSPECIFIED Status: Chronic (12) Paranoid schizophrenia Code(s): F20.0 - PARANOID SCHIZOPHRENIA Status: Chronic (13) Hypomagnesemia Code(s): E83.42 - HYPOMAGNESEMIA Status: Acute (14) Sinus tachycardia Code(s): R00.0 - TACHYCARDIA, UNSPECIFIED Status: Acute Comment: Reactive most likely. Volume depletion given blood during surgery seem most likely. PE and acute infection are other concerns. CXR showed right mid lung zone air infiltrate but patient who has been on broad spectrum antibiotics had no hypoxia or fever or SIRS. (15) Hypoalbuminemia Code(s): E88.09 - OTH DISORDERS OF PLASMA-PROTEIN METABOLISM, NEC Status: Acute - Plan Give albumin and LR bolus and re evaluate. -: DC IV vancomycin and zosyn. Patient has recieved at least 5 days of abx. -: Moreso coag neg staph is considered contaminant -: Monitor H/H and transfuse as needed -: Monitor electrolytes and replete as needed. Continue cefazolin as per ortho * .
[2018-09-18] MEDS ORDERED: Lactated Ringer's 500 ML IV SCH (12:30)
[2018-09-19 08:07] LABS: ALT (SGPT) 10 U/L (8-55); AST (SGOT) 17 U/L (5-34); Albumin 2.5 g/dL (3.5-5.0); Alkaline Phosphatase 43 U/L (40-150); Anion Gap 14 mmol/L (10-20); BUN (Urea Nitrogen) 8 mg/dL (8.4-25.7); Bilirubin, Total 1.6 mg/dL (0.2-1.2); Calc. Creatinine Clearance 117 mL/min (70-130); Calcium 7.7 mg/dL (7.8-10.44); Carbon Dioxide 20 mmol/L (22-29); Chloride 112 mmol/L (98-107); Estimated GFR-MDRD Greater than 90; Globulin 2.4 g/dL (2.4-3.5); Glucose 87 mg/dL (70-105); Magnesium 1.9 mg/dL (1.6-2.6); Potassium 3.6 mmol/L (3.5-5.1); Protein, Total 4.9 g/dL (6.0-8.3); Sodium 142 mmol/L (136-145)
[2018-09-19] MEDS: Senokot S 8.6-50 MG TAB PO SCH ×2 (08:22→19:55)
[2018-09-19] MEDS: Famotidine 20 MG TAB PO SCH ×2 (08:22→19:55)
[2018-09-19] MEDS: Polyethylene Glycol 3350 17 GM Packet PO SCH ×2 (08:23→19:55)
[2018-09-19] MEDS: Lactated Ringer's 1,000 ML IV SCH ×2 (08:36→19:56)
[2018-09-19 09:22] LABS: #Basophils 0.1 thou/uL (0.0-0.2); #Eosinphils 0.3 thou/uL (0.0-0.7); #Lymphocytes 1.8 thou/uL (1.20-3.40); #Neutrophils 8.7 thou/uL (1.40-6.50); %Basophils 0.6 % (0.0-1.0); %Eosinophils 2.5 % (0.0-10.0); %Monocytes 8.3 % (0.0-10.0); %Neutrophils 73.6 % (42.0-75.0); Hemoglobin 6.2 g/dL (14.0-18.0); Mean Corpuscular HGB CONC 32.6 g/dL (32.0-36.0); Mean Corpuscular Hemoglobin 30.4 pg (27.0-31.0); Mean Corpuscular Volume 93.1 fL (78.0-98.0); Platelet Count 173 thou/uL (130-400); RBC Distribution Width 13.3 % (11.5-14.5); Red Blood Cell (RBC) Count 2.04 mill/uL (4.70-6.10); White Blood Cell (WBC) Count 11.8 thou/uL (4.8-10.8)
--- NOTE | 2018-09-19 10:10 | PRG ---
DATE OF SERVICE: 09/19/2018 SUBJECTIVE: The patient was seen and examined at the bedside. He has some abdominal discomfort and some nausea. OBJECTIVE: VITAL SIGNS: Blood pressure is 119/67, it was 96/62 at 4 this morning, temperature is 99.5, pulse 94, respirations 14, pulse oximeter is 93% on room air. HEENT: His head is atraumatic and normocephalic. Eyes are PERRLA. Sclerae are nonicteric. Conjunctivae palish. Oral mucosa is moist. NECK: Supple. LUNGS: Breath sounds diminished at both bases. HEART: S1, S2 normal. No S3. No S4. ABDOMEN: Soft, but somewhat tender to palpation in the mid center. No guarding. No masses. EXTREMITIES: Paralyzed. 1+ peripheral edema on both lower extremities, similar bilaterally. NEUROLOGICAL: He is alert and oriented x3. There is no any motor deficit except for lower extremities. LABORATORY DATA: White count of 11.8, hemoglobin 6.2, hematocrit 19.0, platelet count is 173,000. Sodium of 141, potassium 3.6, chloride 112, CO2 20, anion gap 8, creatinine 0.75, calcium 7.7, magnesium 1.9, total bilirubin 1.6, normal AST and normal ALT, normal alkaline phosphatase, total serum protein 4.9, albumin 2.5. Microbiology; blood culture from the negative x2, preliminary report. Fecal occult blood test negative. IMPRESSION: 1. Sepsis. We will scan his abdomen with IV and p.o. contrast. We will continue Zosyn. 2. Bilateral femoral fracture status post bilateral nailing of both right and left femurs. 3. Hypotension, most likely related to sepsis and blood loss. 4. Anemia. His hemoglobin 6.2 this morning. I suspect that he might be losing some blood internally. We will transfuse him with 2 units of packed red blood cells and scan his abdomen. 5. Urinary tract infection, caused by Escherichia coli. We will continue Zosyn. 6. Multiple sclerosis with lower extremity paralysis. 7. Neurogenic bladder. 8. Paranoid schizophrenia. 9. Hypomagnesemia, corrected. 10. Sinus tachycardia, improved. PLAN: The plan is to restart his Zosyn, transfuse him with 2 units of packed red blood cells, do a CT of the abdomen and pelvis with and without contrast. Job ID: [id number]
[2018-09-19] MEDS ORDERED: Piperacillin/Tazobactam 3.375 GM in Sodium Chloride 0.9% 100 ML IVPB SCH (12:00)
[2018-09-19] MEDS: Ondansetron PF 4 MG/2 ML Vial IVP PRN (12:04)
--- NOTE | 2018-09-19 13:01 | CT ---
CT ABDOMEN AND PELVIS WITH IV CONTRAST: DATE: 09/19/2018. PROVIDED CLINICAL HISTORY: Abdominal pain, sepsis. FINDINGS: Comparison is made with the examination dated 09/15/2018. Small bilateral pleural effusions are parti ally visualized. Bibasilar subsegmental atelectatic change is seen. The solid abdominal organs demonstrate an unchanged CT appearance. There is persistent conspicuous mural thickening involving the rectum and distal sigmoid colon with s urrounding fat stranding. The colonic fecal load is markedly diminished with respect to the prior ex amination. There is no evidence for bowel obstruction. There is no free air apparent. Nonspecific distention of the stomach. No significant free intraperitoneal fluid is evident. Vascular calcifica tions are noted. Interval postoperative changes involving both hips partially visualized. IMPRESSION: 1. Persistent changes of proctocolitis. Overall diminished colonic fecal load with respect to the p rior study. 2. Small bilateral pleural effusions. POS: [facility]
[2018-09-19] MEDS ORDERED: Iopamidol 370 76% 100 ML VIAL ONE (14:11)
[2018-09-19] MEDS: traMADol HCl 50 MG TAB PO PRN (17:37)
[2018-09-19] MEDS: Piperacillin/Tazobactam 3.375 GM in Sodium Chloride 0.9% 100 ML IVPB SCH (19:52)
[2018-09-19] MEDS: Acetaminophen 500 MG TAB PO PRN (20:01)
[2018-09-20] MEDS: Piperacillin/Tazobactam 3.375 GM in Sodium Chloride 0.9% 100 ML IVPB SCH ×2 (01:46→08:55)
[2018-09-20] MEDS: Polyethylene Glycol 3350 17 GM Packet PO SCH ×2 (08:55→21:14)
[2018-09-20] MEDS: Famotidine 20 MG TAB PO SCH ×3 (08:56→21:13)
[2018-09-20] MEDS: Senokot S 8.6-50 MG TAB PO SCH ×2 (08:56→21:15)
[2018-09-20] MEDS ORDERED: Bisacodyl 10 MG SUPP PR PRN (09:17)
[2018-09-20] MEDS ORDERED: Bisacodyl 5 MG TAB PO PRN (09:17)
[2018-09-20] MEDS ORDERED: Acetaminophen 325 MG TAB PO PRN (09:17)
[2018-09-20] MEDS ORDERED: Mag-Al 1200 mg/1200 mg/30 ML UDCUP PO PRN (09:17)
--- NOTE | 2018-09-20 10:12 | PRG ---
DATE OF SERVICE: 09/20/2018 SUBJECTIVE: The patient is seen and examined at the bedside. He complains about lack of appetite. He says that he was taking some kind of appetite stimulant at the [place] [facility] where he came from. He does not have any abdominal pain. OBJECTIVE: VITAL SIGNS: Blood pressure is 140/77, pulse is 88, respiratory rate is 14, O2 saturation is 94% on room air. His temperature is 98.4, maximal temperature 100 last night. HEENT: His head is atraumatic and normocephalic. Sclerae are nonicteric. Oral mucosa is moist. He has poor dental hygiene and multiple caries of his teeth. LUNGS: Clear. HEART: S1 and S2 normal. No S3. No S4. ABDOMEN: Soft, nontender, and nondistended. EXTREMITIES: 1+ peripheral edema. NEUROLOGICAL: He is paralyzed of both lower extremities, although he has some sensation in the lower extremities. He follows my commands. LABORATORY DATA: CBC is pending. IMPRESSION: 1. Probably gastrointestinal is the source, although the patient is not very symptomatic. His blood pressure is running better now. 2. Bilateral femoral fracture status post bilateral nailing of both right and left femurs. 3. Hypotension, resolved. 4. Anemia. Hemoglobin is 6.2, status post 2 units of packed red blood cells transfusion. No retroperitoneal bleeding on the CT. H and H from this morning still pending. 5. Urinary tract infection with Escherichia coli which is not very sensitive to Zosyn. We will switch him to meropenem. 6. Multiple sclerosis with lower extremity paralysis. 7. Neurogenic bladder. 8. Paranoid schizophrenia. 9. Hypomagnesemia corrected. 10. Sinus tachycardia, improved. 11. Proctocolitis per CT. PLAN: Get GI sales and leasing consultant involved. Switch him from Zosyn to meropenem. Restart his home medications. I discussed the case with Dr. Reddy who is okay to start him back on his Eliquis. I am not sure what is the reason he was taking Eliquis at the [place] [facility]. We will try to find out the reason. Also he is telling that he was on some kind of appetite stimulants at the [place] [facility], but it is not on his home medications list. Job ID: [id number]
[2018-09-20] MEDS: Mirtazapine 15 MG TAB PO SCH ×2 (10:41→21:13)
[2018-09-20] MEDS: Ascorbic Acid 500 mg Chewable Tablet PO SCH (10:42)
[2018-09-20] MEDS: Docusate 100 MG CAP PO SCH ×2 (10:42→21:13)
[2018-09-20] MEDS: MEROPENEM 1 GM/50 ML 1 GM in Premix Bag 1 BAG IVPB SCH ×2 (10:43→17:55)
[2018-09-20] MEDS: Divalproex Sodium 125 mg Sprinkle Capsule PO SCH ×2 (10:43→21:13)
[2018-09-20 11:04] LABS: #Basophils 0.1 thou/uL (0.0-0.2); #Eosinphils 0.6 thou/uL (0.0-0.7); #Lymphocytes 1.4 thou/uL (1.20-3.40); #Neutrophils 9.1 thou/uL (1.40-6.50); %Basophils 0.6 % (0.0-1.0); %Eosinophils 4.7 % (0.0-10.0); %Lymphocytes 11.4 % (21.0-51.0); %Monocytes 8.5 % (0.0-10.0); %Neutrophils 74.9 % (42.0-75.0); Hemoglobin 9.7 g/dL (14.0-18.0); Mean Corpuscular HGB CONC 33.5 g/dL (32.0-36.0); Mean Corpuscular Hemoglobin 30.5 pg (27.0-31.0); Mean Platelet Volume 7.3 fL (7.4-10.4); Platelet Count 234 thou/uL (130-400); RBC Distribution Width 13.2 % (11.5-14.5); Red Blood Cell (RBC) Count 3.18 mill/uL (4.70-6.10); White Blood Cell (WBC) Count 12.1 thou/uL (4.8-10.8)
[2018-09-20 11:21] LABS: ALT (SGPT) 16 U/L (8-55); AST (SGOT) 26 U/L (5-34); Albumin 2.6 g/dL (3.5-5.0); Alkaline Phosphatase 53 U/L (40-150); Anion Gap 12 mmol/L (10-20); BUN (Urea Nitrogen) 11 mg/dL (8.4-25.7); Calc. Creatinine Clearance 109 mL/min (70-130); Calcium 7.7 mg/dL (7.8-10.44); Carbon Dioxide 22 mmol/L (22-29); Chloride 111 mmol/L (98-107); Estimated GFR-MDRD Greater than 90; Globulin 2.7 g/dL (2.4-3.5); Glucose 81 mg/dL (70-105); Potassium 3.4 mmol/L (3.5-5.1); Protein, Total 5.3 g/dL (6.0-8.3); Sodium 142 mmol/L (136-145)
[2018-09-20] MEDS: Lactated Ringer's 1,000 ML IV SCH (11:22)
[2018-09-20] MEDS ORDERED: [UNRECOGNIZED DRUG - OTHER] PO SCH (11:30)
[2018-09-20] MEDS ORDERED: LINACLOTIDE PO SCH (11:30)
[2018-09-20] MEDS ORDERED: GoLYTELY 4,000 ml Bottle PO SCH (15:00)
[2018-09-20] MEDS: traMADol HCl 50 MG TAB PO SCH ×2 (15:07→21:10)
[2018-09-20] MEDS: Baclofen 10 MG TAB PO SCH ×2 (15:36→21:11)
--- NOTE | 2018-09-20 17:37 | EKG ---
Test Reason : PREOP Blood Pressure : / mmHG Vent. Rate : 067 BPM Atrial Rate : 067 BPM P-R Int : 138 ms QRS Dur : 070 ms QT Int : 400 ms P-R-T Axes : -02 041 019 degrees QTc Int : 422 ms Normal sinus rhythm Nonspecific ST abnormality Abnormal ECG When compared with ECG of 14-SEP-2018 08:28, (Unconfirmed) Vent. rate has decreased BY 67 BPM Nonspecific T wave abnormality now evident in Inferior leads Confirmed by DR. Keesha DAVIS ([id number]) on 09/20/2018 5:37:13 PM Referred By: GABE Confirmed By:DR. Keesha DAVIS
[2018-09-20] MEDS: Gabapentin 300 MG CAP PO SCH (17:55)
[2018-09-20] MEDS: Nystatin Cream 30 GM TUBE TOP SCH (21:12)
[2018-09-20] MEDS: Lactulose 10 GM/15 ML Oral Solution PO SCH (21:13)
[2018-09-20] MEDS: Oxybutynin 5 MG TAB PO SCH (21:13)
[2018-09-20] MEDS: risperiDONE 3 MG TAB PO SCH (21:14)
[2018-09-21] MEDS: MEROPENEM 1 GM/50 ML 1 GM in Premix Bag 1 BAG IVPB SCH ×3 (01:24→17:46)
[2018-09-21] MEDS: Lactated Ringer's 1,000 ML IV SCH ×3 (01:24→21:29)
--- NOTE | 2018-09-21 03:02 | CON ---
DATE OF CONSULTATION: 09/20/2018 REASON FOR CONSULTATION: Proctocolitis/abnormal gastrointestinal imaging. CONSULTING PHYSICIAN: Ventura Giron MD. HISTORY OF PRESENT ILLNESS: The patient is a 52-year-old male with past medical history of multiple sclerosis with progressive physical decline, paranoid schizophrenia, neurogenic bladder, possible DVT on anticoagulation, and peripheral neuropathy, initially presenting with complaints of leg/back pain. The patient was residing in the intermediate secondary to decreased ability to carry out his ADLs as an outpatient secondary to his multiple sclerosis. Apparently, the patient was being transferred with a [place] lift on September 13, 2018, and experienced breaking the lift itself at which point, the patient was dropped suddenly to the floor and resulted in bilateral femur fractures. On admission, he was noted to have tachycardia and hypotension that responded well to IV fluid administration. He was also noted to have a fever of approximately 102.5 degrees and was placed on IV antibiotics as a result. However, during the course of this hospitalization, he has also been experiencing decreased appetite as well as increased abdominal pain. The abdominal pain is located in the periumbilical region and characterized as a throbbing type pain that is nonradiating and would reach as a severity of 6/10. The abdominal pain is worse with not eating and better with eating, pain medications. Prior to admission, the patient's last bowel movement was approximately 1 week. However, during the course of this hospitalization, he has had multiple bowel movements with his last bowel movement approximately 2 days ago. He does endorse increased nausea and vomiting associated with this increased abdominal pain, but currently denies any fevers, chills, dysphagia, odynophagia, GI bleeding, or weight loss. Of note, the patient states that his last colonoscopy was in 2010, but cannot remember the procedure findings. REVIEW OF SYSTEMS: A 10-category review of systems was obtained with all responses negative except for the pertinent positives as listed in the HPI. PAST MEDICAL HISTORY: As per HPI. PAST SURGICAL HISTORY: None. FAMILY HISTORY: Denies any GI malignancies. SOCIAL HISTORY: Denies any tobacco, alcohol, or illicit drug use. OUTPATIENT MEDICATIONS: Reviewed. ALLERGIES: NO KNOWN DRUG ALLERGIES. PHYSICAL EXAMINATION: VITAL SIGNS: Temperature 98, pulse 92, blood pressure 138/86, respiratory rate 18, saturating 91% on room air. GENERAL: The patient was lying in bed, in no acute distress. Alert and oriented x4. HEENT: Normocephalic, atraumatic. No scleral icterus or JVD noted. CARDIOVASCULAR: Regular rate and rhythm with no discernible murmurs, gallops, or rubs. RESPIRATORY: Clear to auscultation bilaterally with no discernible wheezes or rales. ABDOMEN: Normoactive bowel sounds, soft. Tenderness to palpation in the periumbilical and midepigastric regions. EXTREMITIES: No cyanosis, clubbing, or edema. LABORATORY DATA: CBC with a white blood cell count of 11.8, hemoglobin 6.2, hematocrit 19, platelets 173. Chemistry with a sodium of 142, potassium 3.6, chloride 112, CO2 20, BUN 8, creatinine 0.75, glucose 87, AST 17, ALT 10, albumin 2.5, alkaline phosphatase 43, total bilirubin 1.6. IMAGING DATA: CT of the abdomen and pelvis obtained on September 15, 2018, showed marked distention of the colon with a large volume stool seen throughout the entire colon. Also seen was abnormal thickening of the rectum and sigmoid colons with increased dilation of these area secondary to stool. A repeat CT of the abdomen and pelvis was obtained on September 19, which showed conspicuous mural thickening of the rectum and sigmoid colon. However, they are also remarked on markedly diminished fecal retention when compared to the prior study. ASSESSMENT AND PLAN: The patient is a 52-year-old male with past medical history of multiple sclerosis with progressive physical decline, paranoid schizophrenia, and neurogenic bladder, possible deep venous thrombosis, on anticoagulation and peripheral neuropathy, presenting with anemia, abdominal pain and significant constipation. Abdominal pain/constipation. The patient initially presented to the hospital after sustaining a fall from an unknown height that resulted in bilateral femur fractures. During the course of this hospitalization, he was given increasing amounts of pain medications as a result, which then I think resulted in significant constipation as evidenced by the CT findings from September 15. With this increasing constipation, he could have his resulted in stercoral colitis, especially within the rectum and sigmoid colon that has not yet resolved despite having increasing amounts of bowel movements during the course of this hospitalization as well. With his last colonoscopy being approximately 7-8 years ago with unknown findings, a repeat colonoscopy I think is warranted, especially given the abnormal thickening of the wall within the rectum and sigmoid colons. Recommendations: 1. We would make the patient n.p.o. at midnight in preparation for colonoscopy tomorrow. 2. We we will place the patient on a clear liquid diet today with GoLYTELY prep tonight for colonoscopy. 3. We would continue bowel regimen for the time being given relief of constipation as noted on imaging. 4. Anemia. During the course of this hospitalization, the patient has received approximately 7 units of packed red blood cells to replace significant blood loss, although the patient does not exhibit any retroperitoneal bleeding, although the patient did undergo a right femur intramedullary nail as well as a left femur intramedullary nail, which could result in increased bleeding during these procedures. However, the estimated blood loss for the procedure performed on September 17, 2018, estimated a blood loss of approximately 250 mL, which would not result in the 7 units of blood he has had during the course of this hospitalization. With the increasing abdominal pain in the periumbilical region as well as the nausea, vomiting, an upper GI source of either bleeding or for his pain cannot be ruled out at this time. Iron indices have not been performed, but would be useless in this particular patient given the amount of blood that he has received during this hospitalization. Recommendations: 1. We would make the patient n.p.o. at midnight in preparation for upper endoscopy tomorrow morning. 2. We will perform upper endoscopy tomorrow morning for evaluation of the upper gastrointestinal tract for possible bleeding source and/or source of the patient's abdominal pain. 3. We would continue to trend hemoglobin and hematocrit and transfuse as necessary to maintain and H and H of 7. 4. Continue to monitor clinically for signs of active gastrointestinal bleeding. 5. We will continue to follow. Please call with any questions. Job ID: [id number]
[2018-09-21] MEDS: Nystatin Cream 30 GM TUBE TOP SCH ×2 (06:04→19:21)
[2018-09-21] MEDS: Multivit, Chewable SF 1 TAB PO SCH (06:04)
[2018-09-21] MEDS: Oxybutynin 5 MG TAB PO SCH ×3 (06:04→17:47)
[2018-09-21] MEDS: Baclofen 10 MG TAB PO SCH ×4 (06:04→19:23)
[2018-09-21] MEDS: Gabapentin 300 MG CAP PO SCH ×2 (06:04→17:46)
[2018-09-21] MEDS: traMADol HCl 50 MG TAB PO SCH ×3 (06:04→17:47)
[2018-09-21] MEDS ORDERED: GLATIRAMER SC SCH (07:00)
[2018-09-21] MEDS ORDERED: Apixaban 5 MG TAB PO SCH (09:00)
--- NOTE | 2018-09-21 09:20 | PRG ---
DATE OF SERVICE: 09/21/2018 SUBJECTIVE: The patient is seen and examined at the bedside. He does not have much complaints to offer. He does not have any pain. He is getting ready for colonoscopy to be done by Dr. Sullivan this morning. OBJECTIVE: VITAL SIGNS: Blood pressure is 138/82, pulse is 74, temperature is 98.1, respirations 16, and pulse oximetry is 100%. HEENT: His head is atraumatic and normocephalic. Sclerae are nonicteric. Oral mucosa is moist. NECK: Supple. LUNGS: Clear. HEART: S1 and S2 normal. ABDOMEN: Soft, mildly distended, nontender to palpation. Bowel sounds present. No organomegaly. EXTREMITIES: Paralyzed lower extremities. NEUROLOGICAL: He follows my commands. He shows paralysis of both lower extremities. LABORATORY DATA: Pending. MICROBIOLOGY: No new findings. IMPRESSION: 1. Sepsis, unclear etiology, resolved. His blood pressure is doing much better now. 2. Bilateral femoral fracture, status post bilateral nailing of both right and left femurs. 3. Anemia, status post transfusion of 2 units. Apparently the note which was posted on his file by Dr. Ardon was a mistake and he did not do any esophagogastroduodenoscopy on him. He is getting prepped to be done by Dr. Sullivan, upper and lower GI today. 4. Urinary tract infection with Escherichia coli. 5. Multiple sclerosis with lower extremity paralysis. 6. Neurogenic bladder. 7. Paranoid schizophrenia. 8. Hypomagnesemia, corrected. 9. Sinus tachycardia, improved. PLAN: Plan is to do EGD and colonoscopy today. I discussed the case with Dr. Sullivan and he confirmed that this was posted on the wrong the patient to continue his meropenem at this point and we are waiting for the scope. We will continue the rest of the regimen. Job ID: [id number]
[2018-09-21 09:26] LABS: #Eosinphils 0.6 thou/uL (0.0-0.7); #Monocytes 1.5 thou/uL (0.11-0.59); #Neutrophils 8.5 thou/uL (1.40-6.50); %Basophils 0.2 % (0.0-1.0); %Eosinophils 5.1 % (0.0-10.0); %Lymphocytes 15.5 % (21.0-51.0); %Monocytes 11.5 % (0.0-10.0); %Neutrophils 67.7 % (42.0-75.0); Mean Corpuscular HGB CONC 32.4 g/dL (32.0-36.0); Mean Corpuscular Hemoglobin 30.4 pg (27.0-31.0); Mean Corpuscular Volume 93.8 fL (78.0-98.0); Mean Platelet Volume 7.2 fL (7.4-10.4); Platelet Count 357 thou/uL (130-400); RBC Distribution Width 13.5 % (11.5-14.5); Red Blood Cell (RBC) Count 3.29 mill/uL (4.70-6.10); White Blood Cell (WBC) Count 12.6 thou/uL (4.8-10.8)
[2018-09-21] MEDS: Ascorbic Acid 500 mg Chewable Tablet PO SCH (09:38)
[2018-09-21] MEDS: Famotidine 20 MG TAB PO SCH ×3 (09:39→20:55)
[2018-09-21] MEDS: Divalproex Sodium 125 mg Sprinkle Capsule PO SCH ×2 (09:40→20:55)
[2018-09-21] MEDS: Mirtazapine 15 MG TAB PO SCH ×2 (09:40→20:55)
[2018-09-21] MEDS: Docusate 100 MG CAP PO SCH ×2 (09:41→20:55)
[2018-09-21] MEDS: Lactulose 10 GM/15 ML Oral Solution PO SCH ×2 (09:41→20:55)
[2018-09-21] MEDS: Senokot S 8.6-50 MG TAB PO SCH ×2 (09:41→20:55)
[2018-09-21] MEDS: Polyethylene Glycol 3350 17 GM Packet PO SCH ×2 (09:41→20:51)
[2018-09-21] MEDS ORDERED: PROPOFOL 200 MG/20 ML VIAL ONE (12:34)
[2018-09-21] MEDS ORDERED: Lidocaine 1% PF 5 ML VIAL ONE (12:34)
[2018-09-21] MEDS ORDERED: Promethazine HCl 25 MG/ML VIAL SLOW IVP PRN (14:34)
[2018-09-21] MEDS ORDERED: Promethazine HCl 25 MG/ML VIAL IM PRN (14:34)
[2018-09-21] MEDS ORDERED: Ondansetron HCl/PF 4 MG/2 ML Vial IVP PRN (14:34)
--- NOTE | 2018-09-21 15:11 | OP ---
DATE OF PROCEDURE: 09/21/2018 [employer] SURGEON: None. PROCEDURES PERFORMED: 1. Esophagogastroduodenoscopy, diagnostic. 2. Colonoscopy, diagnostic. INDICATIONS: 1. Abdominal pain. 2. Anemia. 3. Abnormal CT scan of the colon, suggesting inflammatory changes in the rectum and sigmoid area. MEDICATIONS: See Anesthesia record. FINDINGS: After discussion of the risks, benefits, and alternatives of the procedure, informed consent was obtained and witnessed. Pre-endoscopic cardiopulmonary examination was satisfactory. Time-out was performed before sedation was achieved. Sedation was achieved with Anesthesia assistance in the endoscopy unit. A Pentax adult upper endoscope was placed into the oropharynx and passed through the cricopharyngeus under direct visualization. The esophageal mucosa appeared normal throughout with a normal-appearing Z-line. The endoscope was advanced into the stomach. Forward and retroflexed views of the entire gastric mucosa were obtained. The gastric mucosa has a diffusely atrophic appearance, however, there was no evidence of any erosions or ulcerations. Minimal erythema. The endoscope was advanced beyond the pylorus and into the first and second portions of the duodenum, which appeared normal. The upper endoscope was completely withdrawn and the patient was repositioned. Digital rectal exam was performed, which was unremarkable. A Pentax adult colonoscope was inserted into the anus and passed forward to the cecum in the usual fashion. Advancement to the cecum was difficult due to tortuosity of the colon and fair to poor bowel prep, but with abdominal pressure and loop reduction, the cecal base was reached, identified by the appendiceal orifice as well as the ileocecal valve. The terminal ileum was not intubated. The colonoscope was slowly withdrawn in a gradual circumferential manner with careful examination of the entire colonic mucosa. The quality of the prep was fair to poor. It was adequate to rule out any significant lesion and the vast majority of the mucosa was visualized, but small polyps may have been missed. The colonoscopy was normal throughout. Colonic mucosa had no abnormalities. There did appear to be some old scarring in the sigmoid area, but certainly no active inflammation. No erythema or erosions. Retroflexion in the rectum demonstrated internal hemorrhoids. The colonoscope was completely withdrawn, and the patient allowed to recover. The patient tolerated the procedure well. There were no immediate postprocedure complications. IMPRESSION: 1. Diffuse gastric atrophy. 2. Otherwise normal esophagogastroduodenoscopy. 3. Internal hemorrhoids. 4. Otherwise normal colonoscopy to the cecum, within limitations of fair to poor colon prep. RECOMMENDATIONS: 1. Advance diet. 2. Continue to trend hemoglobin and hematocrit. 3. Continue bowel regimen. Please call back anytime with questions or concerns. Job ID: [id number]
[2018-09-21] MEDS: risperiDONE 3 MG TAB PO SCH (21:25)
[2018-09-22] MEDS: MEROPENEM 1 GM/50 ML 1 GM in Premix Bag 1 BAG IVPB SCH ×3 (01:44→18:12)
[2018-09-22 06:16] LABS: #Basophils 0.1 thou/uL (0.0-0.2); #Lymphocytes 2.4 thou/uL (1.20-3.40); #Monocytes 1.4 thou/uL (0.11-0.59); #Neutrophils 6.7 thou/uL (1.40-6.50); %Basophils 0.6 % (0.0-1.0); %Eosinophils 8.6 % (0.0-10.0); %Lymphocytes 20.8 % (21.0-51.0); %Monocytes 12.4 % (0.0-10.0); %Neutrophils 57.7 % (42.0-75.0); Hemoglobin 9.7 g/dL (14.0-18.0); Mean Corpuscular HGB CONC 33.3 g/dL (32.0-36.0); Mean Corpuscular Hemoglobin 31.2 pg (27.0-31.0); Mean Corpuscular Volume 93.9 fL (78.0-98.0); Mean Platelet Volume 6.3 fL (7.4-10.4); Platelet Count 431 thou/uL (130-400); RBC Distribution Width 13.8 % (11.5-14.5); White Blood Cell (WBC) Count 11.6 thou/uL (4.8-10.8)
[2018-09-22] MEDS: Baclofen 10 MG TAB PO SCH ×3 (06:46→18:12)
[2018-09-22] MEDS: Oxybutynin 5 MG TAB PO SCH ×2 (06:46→18:12)
[2018-09-22] MEDS: Multivit, Chewable SF 1 TAB PO SCH (06:46)
[2018-09-22] MEDS: Gabapentin 300 MG CAP PO SCH ×2 (06:46→18:12)
[2018-09-22] MEDS: traMADol HCl 50 MG TAB PO SCH ×3 (07:29→18:12)
[2018-09-22] MEDS: Nystatin Cream 30 GM TUBE TOP SCH ×2 (07:30→21:21)
[2018-09-22] MEDS: Famotidine 20 MG TAB PO SCH ×2 (09:14→21:15)
[2018-09-22] MEDS: Divalproex Sodium 125 mg Sprinkle Capsule PO SCH ×2 (09:14→21:15)
[2018-09-22] MEDS: Mirtazapine 15 MG TAB PO SCH ×2 (09:14→21:15)
[2018-09-22] MEDS: Ascorbic Acid 500 mg Chewable Tablet PO SCH (09:15)
[2018-09-22] MEDS: Polyethylene Glycol 3350 17 GM Packet PO SCH ×2 (09:53→21:19)
[2018-09-22] MEDS: Docusate 100 MG CAP PO SCH ×2 (09:53→21:19)
[2018-09-22] MEDS: Lactulose 10 GM/15 ML Oral Solution PO SCH ×2 (09:53→21:14)
[2018-09-22] MEDS: Senokot S 8.6-50 MG TAB PO SCH ×2 (09:53→21:19)
[2018-09-22] MEDS: Lactated Ringer's 1,000 ML IV SCH (13:55)
--- NOTE | 2018-09-22 15:22 | PRG ---
DATE OF SERVICE: 09/22/2018 SUBJECTIVE: The patient is seen and examined at the bedside. He is feeling good. He does not have much complaints to offer. OBJECTIVE: VITAL SIGNS: Blood pressure is 147/80, pulse is 90, temperature is 98.7, respiratory rate is 16, O2 saturation is 93% on room air. HEENT: His head is atraumatic and normocephalic. Sclerae are nonicteric. Oral mucosa is moist. NECK: Supple. LUNGS: Clear. HEART: S1 and S2 normal. ABDOMEN: Soft and nontender. Bowel sounds are present. No organomegaly. EXTREMITIES: Both lower extremities are paralyzed. There is 1+ peripheral edema. LABORATORY DATA: White count of 11.6, hemoglobin of 9.7, hematocrit 21.1, platelet count is 431,000. IMPRESSION: 1. Sepsis of unclear etiology, resolved. 2. Anemia, status post transfusion and scoping, which showed atrophic mucosa. No any active bleeding. 3. Bilateral femoral fracture, status post bilateral nailing of both right and left femurs. 4. Urinary tract infection with Escherichia coli, currently on meropenem. He needs probably additional couple of days of meropenem IV since we do not have any good oral antibiotic to send him out on, although nitrofurantoin seems to be one of the choices. 5. Multiple sclerosis with lower extremity paralysis. 6. Neurogenic bladder. 7. Paranoid schizophrenia. 8. Hypomagnesemia, corrected. 9. Sinus tachycardia, improved. PLAN: Plan is to continue his meropenem for additional couple of days regimen and transfer to new place, which was just arranged in the next probably 48 hours. Job ID: [id number]
[2018-09-22] MEDS ORDERED: Sodium Chloride 0.9% 10 ML ONE (16:45)
[2018-09-22] MEDS: risperiDONE 3 MG TAB PO SCH (21:15)
[2018-09-23] MEDS: MEROPENEM 1 GM/50 ML 1 GM in Premix Bag 1 BAG IVPB SCH ×3 (01:54→17:57)
[2018-09-23] MEDS: Lactated Ringer's 1,000 ML IV SCH (04:30)
[2018-09-23 05:30] LABS: #Basophils 0.1 thou/uL (0.0-0.2); #Eosinphils 1.1 thou/uL (0.0-0.7); #Lymphocytes 2.7 thou/uL (1.20-3.40); #Monocytes 1.4 thou/uL (0.11-0.59); #Neutrophils 8.2 thou/uL (1.40-6.50); %Basophils 0.5 % (0.0-1.0); %Eosinophils 7.9 % (0.0-10.0); %Lymphocytes 19.9 % (21.0-51.0); %Monocytes 10.2 % (0.0-10.0); %Neutrophils 61.5 % (42.0-75.0); Hemoglobin 10.3 g/dL (14.0-18.0); Mean Corpuscular HGB CONC 32.3 g/dL (32.0-36.0); Mean Corpuscular Hemoglobin 29.9 pg (27.0-31.0); Mean Corpuscular Volume 92.5 fL (78.0-98.0); Mean Platelet Volume 7.3 fL (7.4-10.4); Platelet Count 375 thou/uL (130-400); RBC Distribution Width 14.3 % (11.5-14.5); Red Blood Cell (RBC) Count 3.45 mill/uL (4.70-6.10); White Blood Cell (WBC) Count 13.4 thou/uL (4.8-10.8)
[2018-09-23] MEDS: Gabapentin 300 MG CAP PO SCH ×2 (06:15→17:56)
[2018-09-23] MEDS: traMADol HCl 50 MG TAB PO SCH ×3 (06:15→17:57)
[2018-09-23] MEDS: Multivit, Chewable SF 1 TAB PO SCH (06:15)
[2018-09-23] MEDS: Baclofen 10 MG TAB PO SCH ×3 (06:16→17:56)
[2018-09-23] MEDS: Oxybutynin 5 MG TAB PO SCH ×2 (06:16→17:57)
[2018-09-23] MEDS: Nystatin Cream 30 GM TUBE TOP SCH ×2 (06:16→17:58)
[2018-09-23] MEDS: Polyethylene Glycol 3350 17 GM Packet PO SCH ×2 (08:41→20:11)
[2018-09-23] MEDS: Docusate 100 MG CAP PO SCH ×2 (08:41→20:10)
[2018-09-23] MEDS: Lactulose 10 GM/15 ML Oral Solution PO SCH ×2 (08:41→20:11)
[2018-09-23] MEDS: Senokot S 8.6-50 MG TAB PO SCH ×2 (08:42→20:11)
[2018-09-23] MEDS: Divalproex Sodium 125 mg Sprinkle Capsule PO SCH ×2 (08:48→20:51)
[2018-09-23] MEDS: Ascorbic Acid 500 mg Chewable Tablet PO SCH (08:48)
[2018-09-23] MEDS: Famotidine 20 MG TAB PO SCH ×2 (08:49→20:51)
[2018-09-23] MEDS: Mirtazapine 15 MG TAB PO SCH ×2 (08:49→20:51)
--- NOTE | 2018-09-23 09:41 | RAD ---
LEFT FEMUR FIVE VIEWS: Indications: Fluoroscopic imaging during internal fixation of the left femur. FINDINGS: These films show placement of intramedullary dai and pin transfixing the left femur. POS: JUAN DANIEL
--- NOTE | 2018-09-23 16:18 | PDOC.PN ---
- Subjective Encounter Start Date: 09/23/18 Encounter Start Time: 16:16 Subjective: feels fine.no new complaints -: can not recall why he is on blood thinners and for how long -: no abd pain/N/V - Objective Resuscitation Status - Order Detail: 09/14/18 11:29 Resuscitation Status Routine Resuscitation Status: FULL: Full Resuscitation MAR Reviewed: Yes Vital Signs & Weight: Vital Signs (12 hours) Temp Pulse Resp BP Pulse Ox 09/23/18 16:10 97.4 F L 79 18 168/101 H 93 L 09/23/18 11:37 98.1 F 106 H 16 139/80 98 09/23/18 08:08 98.7 F 94 16 159/96 H 94 L Weight Admit Weight 158 lb Weight 158 lb I&O: 09/22/18 09/23/18 09/24/18 06:59 06:59 06:59 Intake Total 1300 5555 Balance 1300 5555 Result Diagrams: 09/23/18 05:17 09/20/18 10:18 Additional Labs: Microbiology 09/16/18 21:10 Stool Stool Occult Blood (JOSE MARTIN) - Final 09/14/18 08:37 Urine clean catch Urine Culture - Final Escherichia coli 09/14/18 08:20 Venous blood - Right Hand Blood Culture - Final Coagulase Neg Staphylococcus 09/14/18 08:20 Venous blood - Left Arm Blood Culture - Final NO GROWTH IN 5 DAYS 09/18/18 10:44 Venous blood - Left Hand Blood Culture - Preliminary NO GROWTH AT 48 HOURS 09/18/18 10:13 Venous blood - Left Hand Blood Culture - Preliminary NO GROWTH AT 48 HOURS Laboratory Tests 09/14/18 09/15/18 09/16/18 08:20 07:15 07:24 Hgb 11.5 L 7.5 L 7.1 L 09/18/18 09/19/18 09/20/18 04:28 09:10 10:18 Hgb 8.8 L 6.2 L 9.7 L 09/21/18 09/22/18 09/23/18 08:35 05:57 05:17 Hgb 10.0 L 9.7 L 10.3 L Phys Exam - Physical Examination Constitutional: NAD HEENT: PERRLA, moist MMs, sclera anicteric, oral pharynx no lesions Neck: no nodes, no JVD, supple, full ROM Respiratory: no wheezing, no rales, no rhonchi, clear to auscultation bilateral Cardiovascular: RRR, no significant murmur, no rub Gastrointestinal: soft, non-tender, no distention, positive bowel sounds Musculoskeletal: no edema, pulses present paraparesis Psychiatric: normal affect, A&O x 3 Dx/Plan (1) Acute blood loss anemia Code(s): D62 - ACUTE POSTHEMORRHAGIC ANEMIA Status: Acute Comment: Recieved 1 unit of PRBC on 09/15 and 3 units on 09/17.EGD and colonoscopy without any active bleed (2) UTI (urinary tract infection) Status: Acute Comment: Culture grew E coli (3) Bilateral femoral fractures Code(s): S72.91XA - UNSP FRACTURE OF RIGHT FEMUR, INIT FOR CLOS FX; S72.92XA - UNSP FRACTURE OF LEFT FEMUR, INIT ENCNTR FOR CLOSED FRACTURE Status: Acute Comment: ortho consulted (4) GERD (gastroesophageal reflux disease) Code(s): K21.9 - GASTRO-ESOPHAGEAL REFLUX DISEASE WITHOUT ESOPHAGITIS Status: Chronic Qualifiers: Esophagitis presence: esophagitis presence not specified Qualified Code(s) : K21.9 - Gastro-esophageal reflux disease without esophagitis (5) Multiple sclerosis Code(s): G35 - MULTIPLE SCLEROSIS Status: Chronic (6) Neurogenic bladder Code(s): N31.9 - NEUROMUSCULAR DYSFUNCTION OF BLADDER, UNSPECIFIED Status: Chronic (7) Paranoid schizophrenia Code(s): F20.0 - PARANOID SCHIZOPHRENIA Status: Chronic (8) Sepsis Code(s): A41.9 - SEPSIS, UNSPECIFIED ORGANISM Status: Resolved Comment: Most likely 2/2 UTI. ? translocation of gut bacterial due to constipation.Improved - Plan continue antibiotics, PT/OT, DVT proph w/SCDs cont meropenam.urine Cx noted. -: Will check doppler Legs.if no DVT,will stop Eliquis as no clear indication -: pt high risk of bleed due to immobility & fall risk -: also w concerns of GIB this admission -: But remains at rsk of DVt iven immobility.recommend SCDs. * .may DC in am ,if stable. * No documentation of DVT or Need for OAC in old records-reviewed thoroughly * am labs Review of Systems - Review of Systems Constitutional: negative: fever, chills, sweats, weakness, malaise, other ENT: negative: Ear Pain, Ear Discharge, Nose Pain, Nose Discharge, Nose Congestion, Mouth Pain, Mouth Swelling, Throat Pain, Throat Swelling, Other Respiratory: negative: Cough, Dry, Shortness of Breath, Hemoptysis, SOB with Excertion, Pleuritic Pain, Sputum, Wheezing Cardiovascular: negative: chest pain, palpitations, orthopnea, paroxysmal nocturnal dyspnea, edema, light headedness, other Gastrointestinal: negative: Nausea, Vomiting, Abdominal Pain, Diarrhea, Constipation, Melena, Hematochezia, Other Genitourinary: negative: Dysuria, Frequency, Incontinence, Hematuria, Retention , Other Musculoskeletal: negative: Neck Pain, Shoulder Pain, Arm Pain, Back Pain, Hand Pain, Leg Pain, Foot Pain, Other Neurological: negative: Weakness, Numbness, Incoordination, Change in Speech, Confusion, Seizures, Other - Medications/Allergies Allergies/Adverse Reactions: Allergies Allergy/AdvReac Type Severity Reaction Status Date / Time No Known Allergies Allergy Verified 11/20/15 00:22 Medications: Current Medications Acetaminophen (Tylenol) 1,000 mg PO Q6H PRN PRN Reason: Mild Pain (1-3) Last Admin: 09/19/18 20:01 Dose: 1,000 mg Acetaminophen (Tylenol) 650 mg PO Q4H PRN PRN Reason: Fever>101/(Mi/Mod/Sev) Pain Al Hydroxide/Mg Hydroxide (Maalox) 30 ml PO DAILY PRN PRN Reason: Indigestion Ascorbic Acid (Vitamin C) 250 mg PO DAILY [facility] Last Admin: 09/23/18 08:48 Dose: 250 mg Baclofen (Lioresal) 10 mg PO [facility] Last Admin: 09/23/18 12:41 Dose: 10 mg Bisacodyl (Dulcolax) 5 mg PO DAILY PRN PRN Reason: Constipation Bisacodyl (Dulcolax) 10 mg [place] Q8H PRN PRN Reason: Constipation Divalproex Sodium (Depakote Sprinkle) 125 mg PO BID [facility] Last Admin: 09/23/18 08:48 Dose: 125 mg Docusate Sodium (Colace) 100 mg PO DAILY PRN PRN Reason: Constipation Last Admin: 09/16/18 06:36 Dose: 100 mg Docusate Sodium (Colace) 100 mg PO BID [facility] Last Admin: 09/23/18 08:41 Dose: Not Given Famotidine (Pepcid) 20 mg PO BID [facility] Last Admin: 09/23/18 08:49 Dose: 20 mg Gabapentin (Neurontin) 300 mg PO , [facility] Last Admin: 09/23/18 06:15 Dose: 300 mg Cefazolin Sodium/Dextrose 2 gm (/ Device) 50 mls @ 100 mls/hr IVPB ONCALL-OR [facility] Meropenem 1 gm/ Device 50 mls @ 100 mls/hr IVPB 0200,1000,1800 [facility] Last Admin: 09/23/18 11:07 Dose: 50 mls Lactulose (Lactulose 10 Gm/15ml Oral Su) 30 gm PO BID [facility] Last Admin: 09/23/18 08:41 Dose: Not Given Metoprolol Tartrate (Lopressor) 5 mg IVP Q6H PRN PRN Reason: HR > 120 Last Admin: 09/18/18 21:32 Dose: 5 mg Mirtazapine (Remeron) 15 mg PO BID [facility] Last Admin: 09/23/18 08:49 Dose: 15 mg Morphine Sulfate (Morphine) 2 mg SLOW IVP Q4H PRN PRN Reason: Moderate Pain (4-6) Last Admin: 09/18/18 04:55 Dose: 2 mg Morphine Sulfate (Morphine) 4 mg SLOW IVP Q4H PRN PRN Reason: Severe Pain (7-10) Multivitamins (Multivit, Chewable Sf) 1 tab PO 0700 [facility] Last Admin: 09/23/18 06:15 Dose: 1 tab Nystatin (Mycostatin Cream) 0 gm TOP [facility] Last Admin: 09/23/18 06:16 Dose: 30 gm Ondansetron HCl (Zofran Odt) 4 mg PO Q6H PRN PRN Reason: Nausea/Vomiting Ondansetron HCl (Zofran) 4 mg IVP Q6H PRN PRN Reason: Nausea/Vomiting Last Admin: 09/19/18 12:04 Dose: 4 mg Oxybutynin Chloride (Ditropan) 5 mg PO 0700,1900 [facility] Last Admin: 09/23/18 06:16 Dose: 5 mg Patient's Home Medication ( Glatiramer) 1 each SC 0700 [facility] Patient's Home Medication ( Linaclotide-Linzess) 1 each PO AC [facility] Polyethylene Glycol (Miralax) 17 gm PO BID [facility] Last Admin: 09/23/18 08:41 Dose: Not Given Risperidone (Risperidone) 7.5 mg PO HS [facility] Last Admin: 09/22/18 21:15 Dose: 7.5 mg Senna/Docusate Sodium (Senokot S) 1 tab PO BID [facility] Last Admin: 09/23/18 08:42 Dose: Not Given Sodium Chloride (Flush - Normal Saline) 10 ml IVF Q12HR [facility] Last Admin: 09/23/18 08:42 Dose: Not Given Sodium Chloride (Flush - Normal Saline) 10 ml IVF PRN PRN PRN Reason: Saline Flush Tramadol HCl (Ultram) 100 mg PO Q4H PRN PRN Reason: Moderate Pain (4-6) Last Admin: 09/19/18 17:37 Dose: 100 mg Tramadol HCl (Ultram) 100 mg PO 0700,1300,1900 [facility] Last Admin: 09/23/18 12:41 Dose: 100 mg
--- NOTE | 2018-09-23 19:28 | ULT ---
VENOUS DUPLEX SONOGRAM BILATERAL LOWER EXTREMITY 09/23/18 HISTORY: Bilateral leg pain and edema. FINDINGS: Each common femoral vein and greater saphenous junction were evaluated. The deep femoral and femoral veins were evaluated, although the distal portion of the left femoral vein was not well seen. Left po pliteal vein also not well seen. Right popliteal vein is patent. Good color and spectral doppler flow within the visualized portions of each lower extremity. IMPRESSION: No sonographic evidence of DVT within either lower extremity. POS: JUAN DANIEL
[2018-09-23] MEDS: risperiDONE 3 MG TAB PO SCH (20:51)
[2018-09-24] MEDS: MEROPENEM 1 GM/50 ML 1 GM in Premix Bag 1 BAG IVPB SCH ×3 (01:51→18:29)
[2018-09-24 05:52] LABS: #Basophils 0.1 thou/uL (0.0-0.2); #Lymphocytes 2.4 thou/uL (1.20-3.40); #Monocytes 1.2 thou/uL (0.11-0.59); #Neutrophils 6.9 thou/uL (1.40-6.50); %Basophils 1.3 % (0.0-1.0); %Eosinophils 8.6 % (0.0-10.0); %Lymphocytes 20.4 % (21.0-51.0); %Monocytes 10.1 % (0.0-10.0); %Neutrophils 59.6 % (42.0-75.0); Hemoglobin 10.4 g/dL (14.0-18.0); Mean Corpuscular HGB CONC 32.3 g/dL (32.0-36.0); Mean Corpuscular Hemoglobin 31.2 pg (27.0-31.0); Mean Corpuscular Volume 96.6 fL (78.0-98.0); Mean Platelet Volume 6.3 fL (7.4-10.4); Platelet Count 560 thou/uL (130-400); RBC Distribution Width 14.7 % (11.5-14.5); Red Blood Cell (RBC) Count 3.33 mill/uL (4.70-6.10); White Blood Cell (WBC) Count 11.6 thou/uL (4.8-10.8)
[2018-09-24] MEDS: Nystatin Cream 30 GM TUBE TOP SCH ×2 (06:00→18:32)
[2018-09-24 06:14] LABS: Anion Gap 10 mmol/L (10-20); BUN (Urea Nitrogen) 6 mg/dL (8.4-25.7); Calc. Creatinine Clearance 129 mL/min (70-130); Calcium 7.9 mg/dL (7.8-10.44); Carbon Dioxide 34 mmol/L (22-29); Chloride 106 mmol/L (98-107); Estimated GFR-MDRD Greater than 90; Glucose 81 mg/dL (70-105); Sodium 147 mmol/L (136-145)
[2018-09-24 06:21] LABS: Potassium 2.7 mmol/L (3.5-5.1)
[2018-09-24] MEDS: Gabapentin 300 MG CAP PO SCH ×2 (06:21→18:29)
[2018-09-24] MEDS: Baclofen 10 MG TAB PO SCH ×3 (06:21→18:29)
[2018-09-24] MEDS: traMADol HCl 50 MG TAB PO SCH ×3 (06:22→18:29)
[2018-09-24] MEDS: Oxybutynin 5 MG TAB PO SCH ×2 (06:22→18:29)
[2018-09-24] MEDS: Multivit, Chewable SF 1 TAB PO SCH (06:26)
[2018-09-24] MEDS: Divalproex Sodium 125 mg Sprinkle Capsule PO SCH ×2 (08:40→20:54)
[2018-09-24] MEDS: Ascorbic Acid 500 mg Chewable Tablet PO SCH (08:40)
[2018-09-24] MEDS: Mirtazapine 15 MG TAB PO SCH ×2 (08:40→20:54)
[2018-09-24] MEDS: Famotidine 20 MG TAB PO SCH ×2 (08:41→20:54)
[2018-09-24] MEDS: Docusate 100 MG CAP PO SCH ×2 (08:41→20:54)
[2018-09-24] MEDS: Lactulose 10 GM/15 ML Oral Solution PO SCH ×2 (08:41→20:55)
[2018-09-24] MEDS: Potassium Chloride 20 MEQ TAB PO SCH ×2 (08:41→10:46)
[2018-09-24] MEDS: Polyethylene Glycol 3350 17 GM Packet PO SCH ×2 (08:41→20:55)
[2018-09-24] MEDS: Senokot S 8.6-50 MG TAB PO SCH ×2 (08:42→20:54)
[2018-09-24] MEDS ORDERED: Dextrose 5% in Water 1,000 ML IV SCH (09:15)
[2018-09-24] MEDS ORDERED: Enoxaparin Sodium 40 MG/0.4 ML SYRINGE SC SCH (10:00)
--- NOTE | 2018-09-24 14:01 | PDOC.PN ---
- Subjective Encounter Start Date: 09/24/18 Encounter Start Time: 13:59 Subjective: feels OK.no new complaints -: i discussed the results of Doppler legs - Objective Resuscitation Status - Order Detail: 09/14/18 11:29 Resuscitation Status Routine Resuscitation Status: FULL: Full Resuscitation MAR Reviewed: Yes Vital Signs & Weight: Vital Signs (12 hours) Temp Pulse Resp BP Pulse Ox 09/24/18 12:10 98.0 F 90 16 136/85 93 L 09/24/18 07:33 97.8 F 105 H 18 135/86 94 L 09/24/18 04:46 97.8 F 80 20 143/91 H 95 Weight Admit Weight 158 lb Weight 158 lb I&O: 09/23/18 09/24/18 09/25/18 06:59 06:59 06:59 Intake Total 5555 1850 Balance 5555 1850 Result Diagrams: 09/24/18 05:43 09/24/18 05:43 Additional Labs: Microbiology 09/18/18 10:44 Venous blood - Left Hand Blood Culture - Final NO GROWTH IN 5 DAYS 09/18/18 10:13 Venous blood - Left Hand Blood Culture - Final NO GROWTH IN 5 DAYS 09/16/18 21:10 Stool Stool Occult Blood (JOSE MARTIN) - Final 09/14/18 08:37 Urine clean catch Urine Culture - Final Escherichia coli 09/14/18 08:20 Venous blood - Right Hand Blood Culture - Final Coagulase Neg Staphylococcus 09/14/18 08:20 Venous blood - Left Arm Blood Culture - Final NO GROWTH IN 5 DAYS Laboratory Tests 09/24/18 05:43 Magnesium 1.6 Radiology Reviewed by me: Yes (Doppler-No DVT B/L) Phys Exam - Physical Examination Constitutional: NAD HEENT: PERRLA, moist MMs, sclera anicteric, 2+ tonsils Neck: no JVD Respiratory: no wheezing, no rales, no rhonchi Cardiovascular: RRR, no significant murmur Gastrointestinal: soft, non-tender, no distention, positive bowel sounds Musculoskeletal: pulses present, edema present paraparesis Psychiatric: normal affect, A&O x 3 Dx/Plan (1) Acute blood loss anemia Code(s): D62 - ACUTE POSTHEMORRHAGIC ANEMIA Status: Acute Comment: Recieved 1 unit of PRBC on 09/15 and 3 units on 09/17.EGD and colonoscopy without any active bleed (2) UTI (urinary tract infection) Status: Acute Comment: Culture grew E coli.On Meropenam based on sensitivity (3) Hypernatremia Code(s): E87.0 - HYPEROSMOLALITY AND HYPERNATREMIA Status: Acute (4) Hypokalemia Code(s): E87.6 - HYPOKALEMIA Status: Acute Comment: Persistent. magnesium checked and normal.Replace and recheck in am (5) Metabolic alkalosis Code(s): E87.3 - ALKALOSIS Status: Acute Comment: likely voulme depletion (6) Bilateral femoral fractures Code(s): S72.91XA - UNSP FRACTURE OF RIGHT FEMUR, INIT FOR CLOS FX; S72.92XA - UNSP FRACTURE OF LEFT FEMUR, INIT ENCNTR FOR CLOSED FRACTURE Status: Acute Comment: ortho consulted (7) GERD (gastroesophageal reflux disease) Code(s): K21.9 - GASTRO-ESOPHAGEAL REFLUX DISEASE WITHOUT ESOPHAGITIS Status: Chronic Qualifiers: Esophagitis presence: esophagitis presence not specified Qualified Code(s) : K21.9 - Gastro-esophageal reflux disease without esophagitis (8) Multiple sclerosis Code(s): G35 - MULTIPLE SCLEROSIS Status: Chronic (9) Neurogenic bladder Code(s): N31.9 - NEUROMUSCULAR DYSFUNCTION OF BLADDER, UNSPECIFIED Status: Chronic (10) Paranoid schizophrenia Code(s): F20.0 - PARANOID SCHIZOPHRENIA Status: Chronic (11) Sepsis Code(s): A41.9 - SEPSIS, UNSPECIFIED ORGANISM Status: Resolved Comment: Most likely 2/2 UTI. ? translocation of gut bacterial due to constipation.Improved - Plan continue antibiotics, PT/OT, DVT proph w/SCDs start D5W for hypernatremia -1 bag to prevent excessive fluids -: replace and recheck potassium tomorrow am -: add DVT prophylactic dose Lovenox.No avtive belled. -: H/H stable. check in AM -: Likely DC to [facility] tomorrow am.HD stable * . Review of Systems - Review of Systems Constitutional: negative: fever, chills, sweats, weakness, malaise, other ENT: negative: Ear Pain, Ear Discharge, Nose Pain, Nose Discharge, Nose Congestion, Mouth Pain, Mouth Swelling, Throat Pain, Throat Swelling, Other Respiratory: negative: Cough, Dry, Shortness of Breath, Hemoptysis, SOB with Excertion, Pleuritic Pain, Sputum, Wheezing Cardiovascular: negative: chest pain, palpitations, orthopnea, paroxysmal nocturnal dyspnea, edema, light headedness, other Gastrointestinal: negative: Nausea, Vomiting, Abdominal Pain, Diarrhea, Constipation, Melena, Hematochezia, Other Genitourinary: negative: Dysuria, Frequency, Incontinence, Hematuria, Retention , Other Musculoskeletal: negative: Neck Pain, Shoulder Pain, Arm Pain, Back Pain, Hand Pain, Leg Pain, Foot Pain, Other Skin: negative: Rash, Lesions, Ray, Bruising, Other - Medications/Allergies Allergies/Adverse Reactions: Allergies Allergy/AdvReac Type Severity Reaction Status Date / Time No Known Allergies Allergy Verified 11/20/15 00:22 Medications: Current Medications Acetaminophen (Tylenol) 1,000 mg PO Q6H PRN PRN Reason: Mild Pain (1-3) Last Admin: 09/19/18 20:01 Dose: 1,000 mg Acetaminophen (Tylenol) 650 mg PO Q4H PRN PRN Reason: Fever>101/(Mi/Mod/Sev) Pain Al Hydroxide/Mg Hydroxide (Maalox) 30 ml PO DAILY PRN PRN Reason: Indigestion Ascorbic Acid (Vitamin C) 250 mg PO DAILY [facility] Last Admin: 09/24/18 08:40 Dose: 250 mg Baclofen (Lioresal) 10 mg PO ,, [facility] Last Admin: 09/24/18 13:16 Dose: 10 mg Bisacodyl (Dulcolax) 5 mg PO DAILY PRN PRN Reason: Constipation Bisacodyl (Dulcolax) 10 mg IN Q8H PRN PRN Reason: Constipation Divalproex Sodium (Depakote Sprinkle) 125 mg PO BID [facility] Last Admin: 09/24/18 08:40 Dose: 125 mg Docusate Sodium (Colace) 100 mg PO DAILY PRN PRN Reason: Constipation Last Admin: 09/16/18 06:36 Dose: 100 mg Docusate Sodium (Colace) 100 mg PO BID [facility] Last Admin: 09/24/18 08:41 Dose: Not Given Enoxaparin Sodium (Lovenox) 40 mg SC 0900 [facility] Famotidine (Pepcid) 20 mg PO BID [facility] Last Admin: 09/24/18 08:41 Dose: 20 mg Gabapentin (Neurontin) 300 mg PO 07,17 [facility] Last Admin: 09/24/18 06:21 Dose: 300 mg Cefazolin Sodium/Dextrose 2 gm (/ Device) 50 mls @ 100 mls/hr IVPB ONCALL-[facility] Meropenem 1 gm/ Device 50 mls @ 100 mls/hr IVPB 0200,1000,1800 [facility] Last Admin: 09/24/18 11:00 Dose: 50 mls Dextrose/Water (D5w) 1,000 mls @ 75 mls/hr IV .[id number] [facility] Stop: 09/24/18 22:34 Last Admin: 09/24/18 11:08 Dose: 1,000 mls Lactulose (Lactulose 10 Gm/15ml Oral Su) 30 gm PO BID [facility] Last Admin: 09/24/18 08:41 Dose: Not Given Metoprolol Tartrate (Lopressor) 5 mg IVP Q6H PRN PRN Reason: HR > 120 Last Admin: 09/18/18 21:32 Dose: 5 mg Mirtazapine (Remeron) 15 mg PO BID [facility] Last Admin: 09/24/18 08:40 Dose: 15 mg Morphine Sulfate (Morphine) 2 mg SLOW IVP Q4H PRN PRN Reason: Moderate Pain (4-6) Last Admin: 09/18/18 04:55 Dose: 2 mg Morphine Sulfate (Morphine) 4 mg SLOW IVP Q4H PRN PRN Reason: Severe Pain (7-10) Multivitamins (Multivit, Chewable Sf) 1 tab PO 0700 [facility] Last Admin: 09/24/18 06:26 Dose: 1 tab Nystatin (Mycostatin Cream) 0 gm TOP [facility] Last Admin: 09/24/18 06:00 Dose: Not Given Ondansetron HCl (Zofran Odt) 4 mg PO Q6H PRN PRN Reason: Nausea/Vomiting Ondansetron HCl (Zofran) 4 mg IVP Q6H PRN PRN Reason: Nausea/Vomiting Last Admin: 09/19/18 12:04 Dose: 4 mg Oxybutynin Chloride (Ditropan) 5 mg PO 0700,1900 [facility] Last Admin: 09/24/18 06:22 Dose: 5 mg Patient's Home Medication ( Glatiramer) 1 each SC 0700 [facility] Patient's Home Medication ( Linaclotide-Linzess) 1 each PO AC [facility] Polyethylene Glycol (Miralax) 17 gm PO BID [facility] Last Admin: 09/24/18 08:41 Dose: Not Given Risperidone (Risperidone) 7.5 mg PO HS [facility] Last Admin: 09/23/18 20:51 Dose: 7.5 mg Senna/Docusate Sodium (Senokot S) 1 tab PO BID [facility] Last Admin: 09/24/18 08:42 Dose: Not Given Sodium Chloride (Flush - Normal Saline) 10 ml IVF Q12HR [facility] Last Admin: 09/24/18 08:42 Dose: 10 ml Sodium Chloride (Flush - Normal Saline) 10 ml IVF PRN PRN PRN Reason: Saline Flush Last Admin: 09/23/18 18:00 Dose: 10 ml Tramadol HCl (Ultram) 100 mg PO Q4H PRN PRN Reason: Moderate Pain (4-6) Last Admin: 09/19/18 17:37 Dose: 100 mg Tramadol HCl (Ultram) 100 mg PO 0700,1300,1900 [facility] Last Admin: 09/24/18 13:16 Dose: 100 mg
[2018-09-24] MEDS: risperiDONE 3 MG TAB PO SCH (21:10)
[2018-09-25] MEDS: MEROPENEM 1 GM/50 ML 1 GM in Premix Bag 1 BAG IVPB SCH ×3 (02:41→17:49)
[2018-09-25 07:10] LABS: Anion Gap 8 mmol/L (10-20); BUN (Urea Nitrogen) 5 mg/dL (8.4-25.7); Calc. Creatinine Clearance 139 mL/min (70-130); Calcium 7.9 mg/dL (7.8-10.44); Carbon Dioxide 33 mmol/L (22-29); Chloride 104 mmol/L (98-107); Estimated GFR-MDRD Greater than 90; Glucose 77 mg/dL (70-105); Potassium 3.1 mmol/L (3.5-5.1); Sodium 142 mmol/L (136-145)
[2018-09-25] MEDS: traMADol HCl 50 MG TAB PO SCH ×3 (07:36→18:26)
[2018-09-25] MEDS: Oxybutynin 5 MG TAB PO SCH ×2 (07:39→18:26)
[2018-09-25] MEDS: Gabapentin 300 MG CAP PO SCH ×2 (07:39→17:05)
[2018-09-25] MEDS: Baclofen 10 MG TAB PO SCH ×3 (07:40→18:26)
[2018-09-25] MEDS: Multivit, Chewable SF 1 TAB PO SCH (07:40)
[2018-09-25] MEDS: Nystatin Cream 30 GM TUBE TOP SCH ×2 (07:40→17:50)
[2018-09-25] MEDS: Famotidine 20 MG TAB PO SCH (08:36)
[2018-09-25] MEDS: Mirtazapine 15 MG TAB PO SCH (08:36)
[2018-09-25] MEDS: Ascorbic Acid 500 mg Chewable Tablet PO SCH (08:36)
[2018-09-25] MEDS: Divalproex Sodium 125 mg Sprinkle Capsule PO SCH (08:37)
[2018-09-25] MEDS: Docusate 100 MG CAP PO SCH (08:37)
[2018-09-25] MEDS: Lactulose 10 GM/15 ML Oral Solution PO SCH (08:37)
[2018-09-25] MEDS: Senokot S 8.6-50 MG TAB PO SCH (08:38)
[2018-09-25] MEDS: Polyethylene Glycol 3350 17 GM Packet PO SCH (08:38)
[2018-09-25] MEDS ORDERED: Enoxaparin Sodium 40 MG/0.4 ML SYRINGE SC SCH (09:00)
[2018-09-25] MEDS: Potassium Chloride 20 MEQ TAB PO SCH ×2 (09:45→12:58)
--- NOTE | 2018-09-25 15:34 | DIS ---
DATE OF ADMISSION: 09/14/2018 DATE OF DISCHARGE: 09/25/2018 DISCHARGE DISPOSITION: Long-term shelter at [facility] in [place]. DISCHARGE DIAGNOSES: 1. Blood loss anemia. 2. Urinary tract infection. 3. Hypernatremia. 4. Hypokalemia. 5. Metabolic alkalosis likely due from volume depletion, resolved. 6. Bilateral traumatic femoral fractures. 7. Gastroesophageal reflux disease. 8. Multiple sclerosis. 9. Chronic neurogenic bladder. 10. History of paranoid schizophrenia. 11. Sepsis, resolved secondary to urinary tract infection. DISCHARGE MEDICATIONS: As follows; 1. Lactulose 30 g p.o. b.i.d. 2. Docusate 100 p.o. b.i.d. 3. Ascorbic acid 250 daily. 4. Ranitidine 150 daily. 5. Depakote 1 capsule p.o. b.i.d. 6. Mirtazapine 15 b.i.d. 7. Linzess one tablet daily. 8. Risperdal 7.5 mg at bedtime. 9. Nystatin. 10. P.r.n. Copaxone 1 mL. 11. Oxybutynin 5 mg p.o. b.i.d. 12. Baclofen 10 mg t.i.d. 13. Gabapentin 300 mg b.i.d. 14. Tramadol p.r.n. New medication, Lovenox 40 mg subcu daily. The patient has been taken off his Eliquis. IN-HOUSE CONSULTATION: 1. Orthopedics, Dr. Ann. 2. Gastroenterology, Dr. Sullivan and Dr. Wu. PROCEDURES DONE IN HOSPITAL: 1. X-ray of the hip and pelvis upon presentation, which shows comminuted proximal left femur fracture and displaced proximal diaphyseal fracture of the right femur. 2. CT scan of the chest, abdomen, and pelvis on 09/15/2018, which shows marked thickening of the distal sigmoid colon in the rectum, likely stercoral colitis with gaseous distention of the sigmoid colon and questionable contusion of both thighs. 3. Fixing of the right and left femoral fracture with intramedullary nailing for both by Dr. Reddy on 09/17/2018. 4. EGD and colonoscopy by Dr. Wu on 09/21/2018. It shows diffuse gastric atrophy, otherwise normal EGD and internal hemorrhoids, otherwise normal colonoscopy. Transfusion of 7 units of packed RBCs as per the [employer]. I was involved in the care of this patient only towards the end and I am not sure exactly how much transfusions he has required. 5. Lower extremity Doppler ultrasound, which is negative for any DVT bilaterally. 6. Repeat CT scan of abdomen and pelvis on 09/19/2018, which shows persistent changes of proctocolitis. HISTORY OF PRESENT ILLNESS: Mr. Alcantara is an unfortunate 52-year-old male with history of multiple sclerosis, currently at [facility], who was dropped when his [employer] lift broke and he was brought to the EMS and he started to complain of pain in his legs and hips after he was dropped. He was found to be hypotensive and tachycardic when EMS went there. He was given IV fluids and was brought into the emergency room, where he was found to have fever of 102.5 degrees Fahrenheit. He was started on IV fluids, empiric antibiotics. Urinalysis was suspicious for infectious sources in context of neurogenic bladder. He was diagnosed with sepsis secondary to UTI and was found to have bilateral femoral fractures. Orthopedics was consulted. He was also found to be on Eliquis, which was put on hold for possible surgical evaluation. Please see admission history and physical dictated by Dr. Pearson on 09/14/2018. HOSPITAL COURSE: Orthopedics saw the patient and he underwent fixing of femoral fractures bilaterally with intramedullary nailing by Dr. Reddy. He started to complain of some abdominal pain and a CT scan of the abdomen and pelvis was done. It showed some question of colitis and Gastroenterology was consulted. He underwent EGD and colonoscopy as his hemoglobin also dropped as low as around 6. He had no overt GI bleed while he was here and his stool occult blood testing was negative. EGD and colonoscopy was rather unremarkable, but he was taken off Eliquis. There was no any clear indication of why he was on Eliquis, but there was a remote history of DVT. His lower extremity ultrasound was repeated and there was no evidence of DVT, so he was permanently taken off Eliquis. He was put on daily dose of prophylactic Lovenox as he is bedridden with paraplegia and is at high risk for DVT. Eventually, his H and H stabilized. He was found to have a urinary tract infection, which was positive for E coli, which was quite multi-drug resistant. It was sensitive to meropenem and the patient has finished treatment with meropenem in the hospital IV for 5 days. As of this morning, he has been accepted to a new nursing facility at [facility] and will be discharged. He is hemodynamically stable. I have seen and examined the patient. I did discuss the discharge plan with him and he verbalized and understanding. PHYSICAL EXAMINATION: VITAL SIGNS: This morning, temperature 97.9, pulse of 100, respirations 18, saturating 92% on room air, and blood pressure 135/76. GENERAL: No acute distress. Awake, alert, and oriented x3. CHEST: Clear to auscultation bilaterally. HEART: Rate and rhythm are regular. PRIMARY CARE PHYSICIAN: Dr. Garcia. TIME SPENT: Total time spent in the discharge, 35 minutes. Job ID: [id number]
[2018-09-25 16:20] VITALS: BP 145/93; TEMP 98.2
== END 2018-09-25 18:55 | DRG 853 ==
LOC: ERS 08:06 → ERHOLD 12:08 → SURG A 15:32
PROVIDERS: ADMIT Family Medicine; ATTEND Family Medicine
PROC: 0QS836Z Reposition Right Femoral Shaft with Intramedullary Internal Fixation Device, Percutaneous Approach (ICD-10-PCS; principal; 2018-09-17)
PROC: 0QS736Z Reposition Left Upper Femur with Intramedullary Internal Fixation Device, Percutaneous Approach (ICD-10-PCS; 2018-09-17)
PROC: 30233N1 Transfusion of Nonautologous Red Blood Cells into Peripheral Vein, Percutaneous Approach (ICD-10-PCS; 2018-09-17)
PROC: 0DJ08ZZ Inspection of Upper Intestinal Tract, Via Natural or Artificial Opening Endoscopic (ICD-10-PCS; 2018-09-21)
PROC: 0DJD8ZZ Inspection of Lower Intestinal Tract, Via Natural or Artificial Opening Endoscopic (ICD-10-PCS; 2018-09-21)
DX: A41.9 Sepsis, unspecified organism (principal); S72.22XA Displaced subtrochanteric fracture of left femur, initial encounter for closed fracture; S72.301A Unspecified fracture of shaft of right femur, initial encounter for closed fracture; N39.0 Urinary tract infection, site not specified; D62 Acute posthemorrhagic anemia; F20.0 Paranoid schizophrenia; E87.0 Hyperosmolality and hypernatremia; E87.3 Alkalosis; G82.20 Paraplegia, unspecified; G35 Multiple sclerosis; N31.9 Neuromuscular dysfunction of bladder, unspecified; G62.9 Polyneuropathy, unspecified; E83.42 Hypomagnesemia; B96.20 Unspecified Escherichia coli [E. coli] as the cause of diseases classified elsewhere; K29.40 Chronic atrophic gastritis without bleeding; K64.8 Other hemorrhoids; E87.6 Hypokalemia; K59.00 Constipation, unspecified; K21.9 Gastro-esophageal reflux disease without esophagitis; Z79.01 Long term (current) use of anticoagulants; Z87.891 Personal history of nicotine dependence; Z86.718 Personal history of other venous thrombosis and embolism; W17.89XA Other fall from one level to another, initial encounter; Y92.129 Unspecified place in nursing home as the place of occurrence of the external cause
CPT/HCPCS: 36415; 36416; 36430; 51701; 71045; 71260; 72170; 74177; 76000; 80048; 80053; 81003; 81015; 82274; 83605; 83735; 85007; 85025; 85027; 85046; 86850; 86900; 86901; 87040; 87077; 87086; 87149; 87186; 93005; 93010; 93970; 96361; 96365; 96366; 96367; 96374; C1713; C1769; J1650; J1885; J2001; J2185; J2250; J2270; J2405; J2543; J2704; J3010; J3370; J3475; J7050; P9016; P9047; Q9966; Q9967